=== PATIENT | male | born 1975 | race Caucasian/White ===

== ENCOUNTER 2018-01-03 09:31 | Inpatient (IN) | payer OTHER ==
[2018-01-03 10:08] VITALS: BMI 21.7
--- NOTE | 2018-01-03 11:19 | HP ---
COWS - Scale Resting Pulse: 0= [place] 80 or Below Sweatin=Flushed/Facial Moisture Restless Observation: 1= Difficult to Sit Still Pupil Size: 0= Normal to Room Light Bone or Joint Aches: 2= Severe Diffuse Aches Runny Nose/ Eye Tearin= Runny Nose/Eyes GI Upset > 30mins: 1= Stomach Cramp Tremor Observation: 2= Slight Tremor Visible Yawning Observation: 2= >3x During Session Anxiety or Irritability: 2=Irritable/Anxious Goose Flesh Skin: 3=Piloerection COWS Score: 17 Admission ROS S - HPI Chief Complaint: I am here to detox. Allergies/Adverse Reactions: Allergies Allergy/AdvReac Type Severity Reaction Status Date / Time No Known Allergies Allergy Verified 01/03/18 11:08 History of Present Illness: Pt is a 42yr old male with a history of heroin and cocaine dependence seeking detox for treatment. Exam Limitations: No Limitations - Ebola screening Have you traveled outside of the country in the last 21 days: No Have you had contact with anyone from an Ebola affected area: No Have you been sick,other than usual withdrawal symptoms: No Do you have a fever: No - Review of Systems Constitutional: Chills, Diaphoresis, Loss of Appetite, Night Sweats, Changes in sleep, Unintentional Wgt. Loss EENT: reports: Tearing, Nose Congestion Respiratory: reports: No Symptoms reported Cardiac: reports: No Symptoms Reported GI: reports: Poor Appetite, Poor Fluid Intake, Abdominal cramping : reports: No Symptoms Reported Musculoskeletal: reports: No Symptoms Reported Integumentary: reports: Flushing, Sweating Neuro: reports: Tingling, Tremors Endocrine: reports: Excessive Sweating, Flushing, Intolerance to Cold, Intolerance to Heat Hematology: reports: No Symptoms Reported Psychiatric: reports: Judgement Intact, Mood/Affect Appropiate, Orientated x3, Agitated, Anxious Other Systems: Reviewed and Negative Patient History - Patient Medical History Hx Anemia: No Hx Asthma: No Hx Chronic Obstructive Pulmonary Disease (COPD): No Hx Cancer: No Hx Cardiac Disorders: No Hx Congestive Heart Failure: No Hx Hypertension: No Hx Hypercholesterolemia: No Hx Pacemaker: No HX Cerebrovascular Accident: No Hx Seizures: No Hx Dementia: No Hx Diabetes: No Hx Gastrointestinal Disorders: No Hx Liver Disease: No Hx Genitourinary Disorders: No Hx Sexually Transmitted Disorders: No Hx Renal Disease (ESRD): No Hx Thyroid Disease: No Hx Human Immunodeficiency Virus (HIV): No (negative) Hx Hepatitis C: No (negative) Hx Depression: No Hx Suicide Attempt: No (denies) Hx Bipolar Disorder: No Hx Schizophrenia: No - Patient Surgical History Past Surgical History: Yes Hx Neurologic Surgery: No Hx Cataract Extraction: No Hx Cardiac Surgery: No Hx Lung Surgery: No Hx Breast Surgery: No Hx Breast Biopsy: No Hx Abdominal Surgery: No Hx Appendectomy: No Hx Cholecystectomy: No Hx Genitourinary Surgery: No Hx Section: No Other Surgical History: R INGUINAL HERNIA REPAIR IN 2006 Anesthesia Reaction: No - PPD History Previous Implant?: Yes Documented Results: Negative w/o proof Implanted On Prior [facility] Admission?: Yes PPD to be Administered?: Yes - Reproductive History Patient is a Female of Child Bearing Age (11 -55 yrs old): No - Smoking Cessation Smoking history: Current every day smoker Have you smoked in the past 12 months: Yes Aproximately how many cigarettes per day: 20 Hx Chewing Tobacco Use: No Initiated information on smoking cessation: Yes 'Breaking Loose' booklet given: 01/03/18 - Substance & Tx. History Hx Alcohol Use: No Hx Substance Use: Yes Substance Use Type: Cocaine, Heroin Hx Substance Use Treatment: Yes (last detox a year ago [facility] ) - Substances Abused Heroin Route: Injection Frequency: Daily Amount used: 15-20 bags Age of first use: 20 Date of Last Use: 01/02/18 Family Disease History - Family Disease History Family History: Denies Admission Physical Exam S - Vital Signs Vital Signs: Vital Signs - 24 hr 01/03/18 10:02 Temperature 97.7 F Pulse Rate 73 Respiratory 18 Rate Blood Pressure 118/73 - Physical General Appearance: Yes: Appropriately Dressed, Moderate Distress, Tremorous, Irritable, Sweating, Anxious HEENTM: Yes: Normocephalic, Normal Voice, Nasal Congestion, Rhinorrhea Respiratory: Yes: Lungs Clear, Normal Breath Sounds, No Respiratory Distress Neck: Yes: No masses,lesions,Nodules Breast: Yes: Within Normal Limits, Axillae without masses, No masses Cardiology: Yes: Regular Rhythm, Regular Rate, S1, S2 Abdominal: Yes: Normal Bowel Sounds, Non Tender, Soft Genitourinary: Yes: Within Normal Limits Back: Yes: Normal Inspection Musculoskeletal: Yes: full range of Motion Extremities: Yes: Normal Capillary Refill, Normal Inspection, Non-Tender, Tremors Neurological: Yes: Fully Oriented, Alert, Normal Response Integumentary: Yes: Normal Color, Diaphoresis, Track Tanner Lymphatic: Yes: Within Normal Limits - Diagnostic (1) Opioid dependence, uncomplicated Current Visit: Yes Status: Chronic (2) Cocaine dependence Current Visit: Yes Status: Chronic Qualifiers: Substance use status: uncomplicated Qualified Code(s): F14.20 - Cocaine dependence, uncomplicated (3) Nicotine dependence Current Visit: Yes Status: Chronic Qualifiers: Nicotine product type: cigarettes Substance use status: uncomplicated Qualified Code(s): F17.210 - Nicotine dependence, cigarettes, uncomplicated Cleared for Admission [facility] - Detox or Rehab [facility] Level of Care: Medically Managed Detox Regimen/Protocol: Methadone [facility] Breath Alcohol Content Breath Alcohol Content: 0 Urine Drug Screen - Results Urine Drug Screen Results: ASIM-Cocaine, OPI-Opiates, OXY-Oxycodone
[2018-01-03] MEDS ORDERED: MAG HYDROX/AL HYDROX/SIMETH 30 ML UNIT-DOSE CUP PO PRN (11:23)
[2018-01-03] MEDS ORDERED: MAGNESIUM CITRATE 300 ML BOTTLE PO PRN (11:23)
[2018-01-03] MEDS ORDERED: ACETAMINOPHEN 325 MG TABLET (FP) PO PRN (11:23)
[2018-01-03] MEDS ORDERED: IBUPROFEN 400 MG TABLET (FP) PO PRN (11:23)
[2018-01-03] MEDS ORDERED: P-EPHED 60MG/TRIPROLIDI 2.5MG TABLET PO PRN (11:23)
[2018-01-03] MEDS ORDERED: MENTHOL/PHENOL 1 EACH UD MM PRN (11:23)
[2018-01-03] MEDS ORDERED: guaiFENesin/D-METHORPHAN HB 10 ML UNIT-DOSE CUPS PO PRN (11:23)
[2018-01-03] MEDS ORDERED: LOPERAMIDE HCL 2 MG CAPSULE PO PRN (11:23)
[2018-01-03] MEDS ORDERED: MAGNESIUM HYDROX 2400MG/30ML ORAL SUSPENSION 30 ML CUP PO PRN (11:23)
[2018-01-03] MEDS ORDERED: METHADONE HCL 10 MG TABLET (FOR DETOX USE ONLY) PO ONE ×2 (11:52→23:00)
[2018-01-03] MEDS: diazePAM 5 MG TABLET PO PRN ×2 (12:32→18:33)
[2018-01-03] MEDS: NICOTINE POLACRILEX 4 MG GUM BUC PRN ×3 (12:32→22:06)
[2018-01-03 17:12] LABS: URINE APPEARANCE CLEAR; URINE BILIRUBIN NEGATIVE (NEGATIVE); URINE BLOOD NEGATIVE (NEGATIVE); URINE COLOR YELLOW; URINE GLUCOSE (UA) NEGATIVE (NEGATIVE); URINE KETONE NEGATIVE (NEGATIVE); URINE LEUK ESTERASE NEGATIVE (NEGATIVE); URINE NITRITE NEGATIVE (NEGATIVE); URINE PROTEIN NEGATIVE (NEGATIVE)
[2018-01-03] MEDS: THIAMINE HCL 100 MG TABLET (FP) PO SCH (22:05)
[2018-01-04] MEDS: NICOTINE POLACRILEX 4 MG GUM BUC PRN ×2 (05:41→18:04)
[2018-01-04] MEDS: diazePAM 5 MG TABLET PO PRN ×5 (05:41→23:29)
[2018-01-04 09:59] LABS: HEMATOCRIT 39.6 % (35.4-49); HEMOGLOBIN 12.9 GM/dL (11.7-16.9); MCH 28.2 pg (25.7-33.7); MCHC 32.5 g/dl (32.0-35.9); MEAN CELL VOLUME 86.9 fl (80-96); MEAN PLT VOLUME 10.4 fl (7.5-11.1); PLATELET COUNT 217 K/MM3 (134-434); RBC 4.56 M/mm3 (4.00-5.60); RDW 14.9 % (11.9-15.9); WHITE BLOOD COUNT 6.6 K/mm3 (4.0-10.0)
[2018-01-04] MEDS ORDERED: METHADONE HCL 10 MG TABLET (FOR DETOX USE ONLY) PO ONE (10:00)
[2018-01-04] MEDS: PRENATAL VITAMINS W/ FOLIC ACID TABLET (FP) PO SCH (10:02)
[2018-01-04] MEDS: NICOTINE 21 MG/24 HOURS TOPICAL PATCH TD SCH (10:02)
[2018-01-04 10:30] LABS: CHLORIDE 102 mmol/L (98-107); POTASSIUM 4.7 mmol/L (3.5-5.1); SODIUM 137 mmol/L (136-145)
[2018-01-04 10:41] LABS: ALK PHOS 79 U/L (45-117); ANION GAP 6 (8-16); BILIRUBIN,TOTAL 0.5 mg/dL (0.2-1.0); BLOOD UREA NITROGEN 20 mg/dL (7-18); CALCIUM 9.4 mg/dL (8.5-10.1); CO2 29 mmol/L (21-32); GLUCOSE,RANDOM 108 mg/dL (74-106); SGOT/AST 26 U/L (15-37); SGPT/ALT 53 U/L (12-78)
[2018-01-04] MEDS ORDERED: diphenhydrAMINE HCL 50 MG CAPSULE PO PRN (11:24)
--- NOTE | 2018-01-04 11:32 | PN ---
BHS COWS - Scale Resting Pulse: 1= [place] 81-100 Sweatin= Chills/Flushing Restless Observation: 1= Difficult to Sit Still Pupil Size: 0= Normal to Room Light Bone or Joint Aches: 1= Mild Discomfort Runny Nose/ Eye Tearin= None GI Upset > 30mins: 2= Nausea/Diarrhea Tremor Observation of Outstretched Hands: 2= Slight Tremor Visible Yawning Observation: 1= 1-2x During Session Anxiety or Irritability: 4=Extreme Anxiety Goose Flesh Skin: 3=Piloerection COWS Score: 16 BHS Progress Note (SOAP) Subjective: Interrupted Sleep, Anxious, Nausea, Tremors, Body Aches. Objective: PT. A & O X 3,. NO ACUTE DISTRESS. 01/04/18 11:30 Vital Signs Temperature 97.0 F L 01/04/18 09:53 Pulse Rate 86 01/04/18 09:53 Respiratory Rate 18 01/04/18 09:53 Blood Pressure 119/79 01/04/18 09:53 O2 Sat by Pulse Oximetry (%) Laboratory Tests 01/03/18 01/04/18 01/04/18 15:00 05:45 05:45 WBC 6.6 RBC 4.56 Hgb 12.9 Hct 39.6 MCV 86.9 MCH 28.2 MCHC 32.5 RDW 14.9 Plt Count 217 MPV 10.4 Sodium 137 Potassium 4.7 Chloride 102 Carbon Dioxide 29 Anion Gap 6 L BUN 20 H Creatinine 1.0 Creat Clearance w eGFR > 60 Random Glucose 108 H Calcium 9.4 Total Bilirubin 0.5 D AST 26 ALT 53 Alkaline Phosphatase 79 D Total Protein 8.0 Albumin 4.0 Urine Color Yellow Urine Appearance Clear Urine pH 6.0 Ur Specific [place] 1.028 Urine Protein Negative Urine Glucose (UA) Negative Urine Ketones Negative Urine Blood Negative Urine Nitrite Negative Urine Bilirubin Negative Urine Urobilinogen 2.0 Ur Leukocyte Esterase Negative LABS NOTED. RPR RESULT PENDING. 01/04/18 11:31 Assessment: 01/04/18 11:31 WITHDRAWAL SYMPTOMS. Plan: CONTINUE DETOX. INCREASE DAILY PO FLUID INTAKE.
--- NOTE | 2018-01-04 14:01 | EKG ---
Test Reason : Blood Pressure : / mmHG Vent. Rate : 073 BPM Atrial Rate : 073 BPM P-R Int : 156 ms QRS Dur : 102 ms QT Int : 386 ms P-R-T Axes : 058 076 061 degrees QTc Int : 425 ms NORMAL SINUS RHYTHM WITH SINUS ARRHYTHMIA INCOMPLETE RIGHT BUNDLE BRANCH BLOCK BORDERLINE ECG NO PREVIOUS ECGS AVAILABLE Confirmed by MD Hernandez Edward ([id number]) on 01/04/2018 2:01:10 PM Referred By: Confirmed By:Kev Hernandez MD
[2018-01-04] MEDS: CYCLOBENZAPRINE HCL 10 MG TABLET (FP) PO PRN ×2 (14:44→22:26)
[2018-01-04] MEDS: THIAMINE HCL 100 MG TABLET (FP) PO SCH (22:26)
[2018-01-05] MEDS: diazePAM 5 MG TABLET PO PRN ×4 (06:50→22:16)
[2018-01-05] MEDS: CYCLOBENZAPRINE HCL 10 MG TABLET (FP) PO PRN ×3 (06:51→22:17)
[2018-01-05] MEDS: NICOTINE POLACRILEX 4 MG GUM BUC PRN ×4 (06:52→20:34)
[2018-01-05] MEDS ORDERED: METHADONE HCL 5 MG TABLET (FOR DETOX USE ONLY) PO ONE (10:00)
[2018-01-05] MEDS: PRENATAL VITAMINS W/ FOLIC ACID TABLET (FP) PO SCH (10:04)
[2018-01-05] MEDS: NICOTINE 21 MG/24 HOURS TOPICAL PATCH TD SCH (10:05)
--- NOTE | 2018-01-05 10:26 | CONSULT ---
[facility] Psychiatric Consult - Data Date of interview: 01/05/18 Admission source: [facility] Identifying data: Readmission to [facility] for this 42 y/o male seeking detox treatment on for heroin and cocaine dependence.Patient is single without children,domiciled and currently employed. Substance Abuse History: Confirmed by patient in this interview.Mr Desir admits to daily use of heroin and cocaine (crack). Details in current [facility] report.Smoking history: Current every day smoker. Have you smoked in the past 12 months: Yes. Aproximately how many cigarettes per day: 20. Hx Chewing Tobacco Use: No. Initiated information on smoking cessation: Yes. 'Breaking Loose' booklet given: 01/03/18. - Substance & Tx. History. Hx Alcohol Use: No. Hx Substance Use: Yes. Substance Use Type: Cocaine, Heroin. Hx Substance Use Treatment: Yes (last detox a year ago [facility] ). - Substances Abused. Heroin. Route: Injection. Frequency: Daily. Amount used: 15-20 bags. Age of first use: 20. Date of Last Use: 01/02/18 Medical History: Patient endorses good general health.Past history of right inguinal herniorraphy. Psychiatric History: Patient denies. Physical/Sexual Abuse/Trauma History: Patient denies. Additional Comment: Urine Drug Screen Results: ASIM-Cocaine, OPI-Opiates, OXY- Oxycodone.Noted. Mental Status Exam - Mental Status Exam Alert and Oriented to: Time, Place, Person Cognitive Function: Good Patient Appearance: Well Groomed Mood: Withdrawn, Hopeful Affect: Appropriate, Mood Congruent, Normal Range Patient Behavior: Fatigued, Appropriate, Cooperative Speech Pattern: Clear, Appropriate Voice Loudness: Normal Thought Process: Intact, Goal Oriented Thought Disorder: Not Present Hallucinations: Denies Suicidal Ideation: Denies Homicidal Ideation: Denies Insight/Judgement: Poor Sleep: Poorly, Difficulty falling asleep (requests seroquel) Appetite: Good Muscle strength/Tone: Normal Gait/Station: Normal Psychiatric Findings - Problem List ([place] 1, 2,3) (1) Opioid dependence, uncomplicated Current Visit: Yes Status: Acute (2) Cocaine dependence Current Visit: Yes Status: Acute Qualifiers: Substance use status: uncomplicated Qualified Code(s): F14.20 - Cocaine dependence, uncomplicated (3) Nicotine dependence Current Visit: Yes Status: Acute Qualifiers: Nicotine product type: cigarettes Substance use status: uncomplicated Qualified Code(s): F17.210 - Nicotine dependence, cigarettes, uncomplicated (4) Insomnia Current Visit: Yes Status: Acute - Initial Treatment Plan Initial Treatment Plan: Psychoeducation.Sleep hygiene.Detoxification in progress.Seroquel 50 mg po hs (patient's request).Side effects/benefits discussed with the patient.Mr Desir agrees with this careplan.Observation.
--- NOTE | 2018-01-05 10:53 | PN ---
BHS COWS - Scale Resting Pulse: 1= [place] 81-100 Sweatin= Chills/Flushing Restless Observation: 1= Difficult to Sit Still Pupil Size: 0= Normal to Room Light Bone or Joint Aches: 2= Severe Diffuse Aches Runny Nose/ Eye Tearin= None GI Upset > 30mins: 1= Stomach Cramp Tremor Observation of Outstretched Hands: 0= None Yawning Observation: 2= >3x During Session Anxiety or Irritability: 2=Irritable/Anxious Goose Flesh Skin: 3=Piloerection COWS Score: 13 BHS Progress Note (SOAP) Subjective: Body Aches, Constipation, Anxious, Sweating. Objective: PT. A & O X 3, OBSERVED AMBULATING ON UNIT. NO ACUTE DISTRESS. 01/05/18 10:50 Vital Signs Temperature 98.1 F 01/05/18 09:47 Pulse Rate 82 01/05/18 09:47 Respiratory Rate 18 01/05/18 09:47 Blood Pressure 114/79 01/05/18 09:47 O2 Sat by Pulse Oximetry (%) Laboratory Tests 01/03/18 01/04/18 01/04/18 15:00 05:45 05:45 WBC 6.6 RBC 4.56 Hgb 12.9 Hct 39.6 MCV 86.9 MCH 28.2 MCHC 32.5 RDW 14.9 Plt Count 217 MPV 10.4 Sodium 137 Potassium 4.7 Chloride 102 Carbon Dioxide 29 Anion Gap 6 L BUN 20 H Creatinine 1.0 Creat Clearance w eGFR > 60 Random Glucose 108 H Calcium 9.4 Total Bilirubin 0.5 D AST 26 ALT 53 Alkaline Phosphatase 79 D Total Protein 8.0 Albumin 4.0 Urine Color Yellow Urine Appearance Clear Urine pH 6.0 Ur Specific [place] 1.028 Urine Protein Negative Urine Glucose (UA) Negative Urine Ketones Negative Urine Blood Negative Urine Nitrite Negative Urine Bilirubin Negative Urine Urobilinogen 2.0 Ur Leukocyte Esterase Negative RPR Titer 01/04/18 05:45 WBC RBC Hgb Hct MCV MCH MCHC RDW Plt Count MPV Sodium Potassium Chloride Carbon Dioxide Anion Gap BUN Creatinine Creat Clearance w eGFR Random Glucose Calcium Total Bilirubin AST ALT Alkaline Phosphatase Total Protein Albumin Urine Color Urine Appearance Urine pH Ur Specific [place] Urine Protein Urine Glucose (UA) Urine Ketones Urine Blood Urine Nitrite Urine Bilirubin Urine Urobilinogen Ur Leukocyte Esterase RPR Titer Nonreactive LABS NOTED. Assessment: 01/05/18 10:51 WITHDRAWAL SYMPTOMS. Plan: CONTINUE DETOX. PRN MOM FOR CONSTIPATION. INCREASE DAILY PO FLUID INTAKE.
[2018-01-05] MEDS: hydrOXYzine PAMOATE 50 MG CAPSULE (FP) PO PRN ×2 (16:42→22:17)
[2018-01-05] MEDS: THIAMINE HCL 100 MG TABLET (FP) PO SCH (22:17)
[2018-01-06] MEDS: diazePAM 5 MG TABLET PO PRN ×2 (05:14→10:01)
[2018-01-06] MEDS: NICOTINE POLACRILEX 4 MG GUM BUC PRN ×6 (05:14→22:22)
[2018-01-06] MEDS: CYCLOBENZAPRINE HCL 10 MG TABLET (FP) PO PRN ×2 (05:14→22:22)
[2018-01-06] MEDS: hydrOXYzine PAMOATE 50 MG CAPSULE (FP) PO PRN ×3 (05:15→22:50)
[2018-01-06] MEDS ORDERED: METHADONE HCL 5 MG TABLET (FOR DETOX USE ONLY) PO ONE (10:00)
[2018-01-06] MEDS: PRENATAL VITAMINS W/ FOLIC ACID TABLET (FP) PO SCH (10:01)
[2018-01-06] MEDS: NICOTINE 21 MG/24 HOURS TOPICAL PATCH TD SCH (10:02)
--- NOTE | 2018-01-06 11:14 | PN ---
BHS Progress Note (SOAP) Subjective: Anxious, Sweating, Stomach Cramping, Body Aches, Interrupted Sleep. Objective: PT. A & O X 3, OBSERVED AMBULATING ON UNIT. NO ACUTE DISTRESS. 01/06/18 11:10 Vital Signs Temperature 96.2 F L 01/06/18 09:41 Pulse Rate 77 01/06/18 09:41 Respiratory Rate 18 01/06/18 09:41 Blood Pressure 110/81 01/06/18 09:41 O2 Sat by Pulse Oximetry (%) Laboratory Tests 01/03/18 01/04/18 01/04/18 15:00 05:45 05:45 WBC 6.6 RBC 4.56 Hgb 12.9 Hct 39.6 MCV 86.9 MCH 28.2 MCHC 32.5 RDW 14.9 Plt Count 217 MPV 10.4 Sodium 137 Potassium 4.7 Chloride 102 Carbon Dioxide 29 Anion Gap 6 L BUN 20 H Creatinine 1.0 Creat Clearance w eGFR > 60 Random Glucose 108 H Calcium 9.4 Total Bilirubin 0.5 D AST 26 ALT 53 Alkaline Phosphatase 79 D Total Protein 8.0 Albumin 4.0 Urine Color Yellow Urine Appearance Clear Urine pH 6.0 Ur Specific [place] 1.028 Urine Protein Negative Urine Glucose (UA) Negative Urine Ketones Negative Urine Blood Negative Urine Nitrite Negative Urine Bilirubin Negative Urine Urobilinogen 2.0 Ur Leukocyte Esterase Negative RPR Titer 01/04/18 05:45 WBC RBC Hgb Hct MCV MCH MCHC RDW Plt Count MPV Sodium Potassium Chloride Carbon Dioxide Anion Gap BUN Creatinine Creat Clearance w eGFR Random Glucose Calcium Total Bilirubin AST ALT Alkaline Phosphatase Total Protein Albumin Urine Color Urine Appearance Urine pH Ur Specific [place] Urine Protein Urine Glucose (UA) Urine Ketones Urine Blood Urine Nitrite Urine Bilirubin Urine Urobilinogen Ur Leukocyte Esterase RPR Titer Nonreactive LABS NOTED. Assessment: 01/06/18 11:10 WITHDRAWAL SYMPTOMS. Plan: CONTINUE DETOX. CLONIDINE, 0.,1 MG PO FOR DETOX SYMPTOMS (PATIENT REQUESTS). INCREASE DAILY PO FLUID INTAKE.
[2018-01-06] MEDS ORDERED: cloNIDine HCL 0.1 MG TABLET PO ONE (11:30)
[2018-01-06] MEDS ORDERED: QUEtiapine FUMARATE 50 MG TABLET PO SCH (22:00)
[2018-01-06] MEDS: THIAMINE HCL 100 MG TABLET (FP) PO SCH (22:22)
[2018-01-07] MEDS: NICOTINE POLACRILEX 4 MG GUM BUC PRN ×2 (05:30→08:29)
[2018-01-07] MEDS: CYCLOBENZAPRINE HCL 10 MG TABLET (FP) PO PRN (05:30)
[2018-01-07] MEDS: hydrOXYzine PAMOATE 50 MG CAPSULE (FP) PO PRN (05:30)
[2018-01-07] MEDS: NICOTINE 21 MG/24 HOURS TOPICAL PATCH TD SCH (09:35)
[2018-01-07] MEDS: PRENATAL VITAMINS W/ FOLIC ACID TABLET (FP) PO SCH (09:35)
[2018-01-07 09:38] VITALS: BP 118/79; PULSE 84; TEMP 96.6
[2018-01-07] MEDS ORDERED: METHADONE HCL 10 MG TABLET (FOR DETOX USE ONLY) PO ONE (10:00)
--- NOTE | 2018-01-07 11:18 | DS ---
[facility] Detox Discharge Summary Admission Date: 01/03/18 Discharge Date: 01/07/18 - History Present History: Cocaine Dependence, Opioid Dependence Additional Comments: PATIENT HAS PERSONAL ISSUE TO AND DOES NOT WISH TO STAY TO COMPLETE DETOX REGIMEN. RISKS OF LEAVING DETOX REGIMEN AGAINST MEDICAL ADVICE AND PRIOR TO COMPLETION OF DETOX REGIMEN EXPLAINED TO PATIENT. PATIENT ADVISED TO GO IMMEDIATELY TO NEAREST ER SHOULD ANY INTOLERABLE DETOX SYMPTOMS DEVELOP AT ANY TIME. PATIENT LEFT DETOX UNIT IN STABLE MEDICAL CONDITION. Pertinent Past History: Nicotine Dependence, Insomnia. - Physical Exam Results Vital Signs: Vital Signs Temperature 96.6 F L 01/07/18 09:37 Pulse Rate 84 01/07/18 09:37 Respiratory Rate 16 01/07/18 09:37 Blood Pressure 118/79 01/07/18 09:37 O2 Sat by Pulse Oximetry (%) Pertinent Admission Physical Exam Findings: WITHDRAWAL SYMPTOMS. Laboratory Tests 01/03/18 01/04/18 01/04/18 15:00 05:45 05:45 WBC 6.6 RBC 4.56 Hgb 12.9 Hct 39.6 MCV 86.9 MCH 28.2 MCHC 32.5 RDW 14.9 Plt Count 217 MPV 10.4 Sodium 137 Potassium 4.7 Chloride 102 Carbon Dioxide 29 Anion Gap 6 L BUN 20 H Creatinine 1.0 Creat Clearance w eGFR > 60 Random Glucose 108 H Calcium 9.4 Total Bilirubin 0.5 D AST 26 ALT 53 Alkaline Phosphatase 79 D Total Protein 8.0 Albumin 4.0 Urine Color Yellow Urine Appearance Clear Urine pH 6.0 Ur Specific [place] 1.028 Urine Protein Negative Urine Glucose (UA) Negative Urine Ketones Negative Urine Blood Negative Urine Nitrite Negative Urine Bilirubin Negative Urine Urobilinogen 2.0 Ur Leukocyte Esterase Negative RPR Titer 01/04/18 05:45 WBC RBC Hgb Hct MCV MCH MCHC RDW Plt Count MPV Sodium Potassium Chloride Carbon Dioxide Anion Gap BUN Creatinine Creat Clearance w eGFR Random Glucose Calcium Total Bilirubin AST ALT Alkaline Phosphatase Total Protein Albumin Urine Color Urine Appearance Urine pH Ur Specific [place] Urine Protein Urine Glucose (UA) Urine Ketones Urine Blood Urine Nitrite Urine Bilirubin Urine Urobilinogen Ur Leukocyte Esterase RPR Titer Nonreactive LABS NOTED. - Treatment Hospital Course: Detoxed Safely - Medication Discharge Medications: Ambulatory Orders NK [No Known Home Medication] 01/03/18 - Diagnosis (1) Cocaine dependence Status: Acute Qualifiers: Substance use status: uncomplicated Qualified Code(s): F14.20 - Cocaine dependence, uncomplicated (2) Nicotine dependence Status: Acute Qualifiers: Nicotine product type: cigarettes Substance use status: uncomplicated Qualified Code(s): F17.210 - Nicotine dependence, cigarettes, uncomplicated (3) Opioid dependence, uncomplicated Status: Acute (4) Insomnia Status: Acute Qualifiers: Insomnia type: unspecified Qualified Code(s): G47.00 - Insomnia, unspecified - AMA Did Patient Leave Against Medical Advice: Yes (PT HAD PERSONAL ISSUE AND DOES NOT WISH TO STAY TO COMPLETE DETOX REGIMEN.)
[2018-01-08] MEDS ORDERED: METHADONE HCL 5 MG TABLET (FOR DETOX USE ONLY) PO ONE (06:00)
== END 2018-01-07 10:34 | disposition left against medical advice (07) | DRG 894 ==
LOC: YASAS 09:31 → Y3N 11:38
PROVIDERS: ADMIT Internal Medicine; ATTEND Internal Medicine
PROC: HZ2ZZZZ Detoxification Services for Substance Abuse Treatment (ICD-10-PCS; principal; 2018-01-03)
DX: F11.23 Opioid dependence with withdrawal (principal); F14.20 Cocaine dependence, uncomplicated; F17.210 Nicotine dependence, cigarettes, uncomplicated; G47.00 Insomnia, unspecified
CPT/HCPCS: 36415; 80053; 81003; 85027; 86593; 93005; 93010; J0735

== ENCOUNTER 2018-09-26 12:27 | Inpatient (IN) | payer OTHER ==
[2018-09-26 15:05] VITALS: BMI 22.9
--- NOTE | 2018-09-26 16:43 | HP ---
COWS - Scale Resting Pulse: 0= [place] 80 or Below Sweatin=Flushed/Facial Moisture Restless Observation: 1= Difficult to Sit Still Pupil Size: 0= Normal to Room Light Bone or Joint Aches: 1= Mild Discomfort Runny Nose/ Eye Tearin= Nasal Congestion GI Upset > 30mins: 2= Nausea/Diarrhea Tremor Observation: 2= Slight Tremor Visible Yawning Observation: 1= 1-2x During Session Anxiety or Irritability: 2=Irritable/Anxious Goose Flesh Skin: 0=Smooth Skin COWS Score: [address] [facility] Chief Complaint: opioid withdrawal symptoms Allergies/Adverse Reactions: Allergies Allergy/AdvReac Type Severity Reaction Status Date / Time No Known Allergies Allergy Verified 09/26/18 15:37 History of Present Illness: 43 yo male with hx of nicotine, heroin (IV), crack / cocaine dependence is here seeking detox and tx of withdrawal symptoms. Last detox [facility] Dec 2017. Denies suicidal / homicidal ideation. Reports was arrested a few days ago for drug possession. Longest period of sobriety five years. Reports on suboxone maintenance four years ago. Exam Limitations: No Limitations - Ebola screening Have you traveled outside of the country in the last 21 days: No Have you had contact with anyone from an Ebola affected area: No Have you been sick,other than usual withdrawal symptoms: No - Review of Systems Constitutional: Chills, Loss of Appetite, Changes in sleep, Weakness, Unintentional Wgt. Loss (40 lbs in the past "couple of year") EENT: reports: Nose Congestion Respiratory: reports: No Symptoms reported Cardiac: reports: No Symptoms Reported GI: reports: Constipated (last BM two days), Nausea, Poor Appetite, Abdominal cramping : reports: No Symptoms Reported Musculoskeletal: reports: Joint Pain Integumentary: reports: No Symptoms Reported Neuro: reports: No Symptoms reported Endocrine: reports: Increased Thirst Hematology: reports: No Symptoms Reported Psychiatric: reports: Orientated x3, Anxious Other Systems: Reviewed and Negative Patient History - Patient Medical History Hx Anemia: No Hx Asthma: No Hx Chronic Obstructive Pulmonary Disease (COPD): No Hx Cancer: No Hx Cardiac Disorders: No Hx Congestive Heart Failure: No Hx Hypertension: No Hx Hypercholesterolemia: No Hx Pacemaker: No HX Cerebrovascular Accident: No Hx Seizures: No Hx Dementia: No Hx Diabetes: No Hx Gastrointestinal Disorders: No Hx Liver Disease: No Hx Genitourinary Disorders: No Hx Sexually Transmitted Disorders: No Hx Renal Disease (ESRD): No Hx Thyroid Disease: No Hx Human Immunodeficiency Virus (HIV): No (negative) Hx Hepatitis C: No (negative) Hx Depression: No Hx Suicide Attempt: No Hx Bipolar Disorder: No Hx Schizophrenia: No - Patient Surgical History Past Surgical History: Yes Hx Neurologic Surgery: No Hx Cataract Extraction: No Hx Cardiac Surgery: No Hx Lung Surgery: No Hx Breast Surgery: No Hx Breast Biopsy: No Hx Abdominal Surgery: No Hx Appendectomy: No Hx Cholecystectomy: No Hx Genitourinary Surgery: No Hx Section: No Hx Orthopedic Surgery: Yes (R wrist sx for fx at age 14 yrs old.) Other Surgical History: R INGUINAL HERNIA REPAIR IN 2006 Anesthesia Reaction: No - PPD History Previous Implant?: Yes Documented Results: Negative w/proof Implanted On Prior [facility] Admission?: Yes Date: 01/05/18 Results: 0 mm PPD to be Administered?: Yes - Smoking Cessation Smoking history: Current every day smoker Have you smoked in the past 12 months: Yes Aproximately how many cigarettes per day: 20 Hx Chewing Tobacco Use: No Initiated information on smoking cessation: Yes 'Breaking Loose' booklet given: 09/26/18 - Substance & Tx. History Hx Alcohol Use: No Hx Substance Use: Yes Substance Use Type: Cocaine, Heroin Hx Substance Use Treatment: Yes ([facility] detox Dec 2017) - Substances Abused Heroin Route: Injection Frequency: Daily Amount used: 15-20 BAGS Age of first use: 20 Date of Last Use: 09/26/18 Cocaine Route: Smoking Frequency: Daily Amount used: $30 Age of first use: 17 Date of Last Use: 09/26/18 Family Disease History - Family Disease History Family Disease History: Diabetes: Father (alive ) Admission Physical Exam BHS - Vital Signs Vital Signs: Vital Signs - 24 hr 09/26/18 15:03 Temperature 97 F L Pulse Rate 74 Respiratory 18 Rate Blood Pressure 123/78 - Physical General Appearance: Yes: Disheveled, Mild Distress, Thin, Sweating, Anxious HEENTM: Yes: EOMI, Hearing grossly Normal, Normal ENT Inspection, Normocephalic , Normal Voice, SHELLY, Pharynx Normal, Tm's normal, Other (dry mucous membranes, cheilithis) Respiratory: Yes: Chest Non-Tender, Lungs Clear, Normal Breath Sounds, No Respiratory Distress, No Accessory Muscle Use Neck: Yes: Within Normal Limits Breast: Yes: Breast Exam Deferred Cardiology: Yes: Regular Rhythm, Regular Rate Abdominal: Yes: Normal Bowel Sounds, Non Tender, Flat, Soft Genitourinary: Yes: Within Normal Limits Back: Yes: Normal Inspection Musculoskeletal: Yes: full range of Motion, Gait Steady, Pelvis Stable Extremities: Yes: Normal Capillary Refill, Normal Inspection, Normal Range of Motion, Non-Tender Neurological: Yes: solar mechanical engineer II-XII NML intact, Fully Oriented, Alert, Motor Strength 5/5, Depressed Affect Integumentary: Yes: Normal Color, Warm, Diaphoresis, Track Tanner (both hands no infection present) Lymphatic: Yes: Within Normal Limits - Diagnostic (1) Opioid dependence with withdrawal Current Visit: Yes Status: Acute (2) Cocaine dependence Current Visit: Yes Status: Acute Qualifiers: Substance use status: uncomplicated Qualified Code(s): F14.20 - Cocaine dependence, uncomplicated (3) Nicotine dependence Current Visit: Yes Status: Acute Qualifiers: Nicotine product type: cigarettes Substance use status: uncomplicated Qualified Code(s): F17.210 - Nicotine dependence, cigarettes, uncomplicated (4) IVDU (intravenous drug user) Current Visit: Yes Status: Acute [facility] Level of Care: Medically Managed Detox Regimen/Protocol: Methadone [facility] Breath Alcohol Content Breath Alcohol Content: 0 Urine Drug Screen - Results Drug Screen Negative: No Urine Drug Screen Results: ASIM-Cocaine, OPI-Opiates, BAR-Barbiturates, OXY- Oxycodone
[2018-09-26] MEDS ORDERED: MENTHOL/PHENOL 1 EACH UD MM PRN (16:45)
[2018-09-26] MEDS ORDERED: guaiFENesin/D-METHORPHAN HB 10 ML UNIT-DOSE CUPS PO PRN (16:45)
[2018-09-26] MEDS ORDERED: IBUPROFEN 400 MG TABLET (FP) PO PRN (16:45)
[2018-09-26] MEDS ORDERED: P-EPHED 60MG/TRIPROLIDI 2.5MG TABLET PO PRN (16:45)
[2018-09-26] MEDS ORDERED: MAGNESIUM CITRATE 300 ML BOTTLE PO PRN (16:45)
[2018-09-26] MEDS ORDERED: MAGNESIUM HYDROX 2400MG/30ML ORAL SUSPENSION 30 ML CUP PO PRN (16:45)
[2018-09-26] MEDS ORDERED: MAG HYDROX/AL HYDROX/SIMETH 30 ML UNIT-DOSE CUP PO PRN (16:45)
[2018-09-26] MEDS ORDERED: LOPERAMIDE HCL 2 MG CAPSULE PO PRN (16:45)
[2018-09-26] MEDS ORDERED: ACETAMINOPHEN 325 MG TABLET (FP) PO PRN (16:45)
[2018-09-26] MEDS ORDERED: METHADONE HCL 10 MG TABLET (FOR DETOX USE ONLY) PO ONE ×2 (17:30→23:00)
[2018-09-26] MEDS: diazePAM 5 MG TABLET PO PRN ×2 (18:14→22:20)
[2018-09-26] MEDS: THIAMINE HCL 100 MG TABLET (FP) PO SCH (22:18)
[2018-09-26] MEDS: MELATONIN 5 MG TABLETS PO PRN (22:18)
[2018-09-27 01:37] LABS: URINE APPEARANCE CLEAR; URINE BILIRUBIN NEGATIVE (<2.0 mg/dL); URINE COLOR AMBER; URINE GLUCOSE (UA) NEGATIVE (NEGATIVE); URINE KETONE NEGATIVE (NEGATIVE); URINE LEUK ESTERASE NEGATIVE (NEGATIVE); URINE NITRITE NEGATIVE (NEGATIVE); URINE PROTEIN 1+ (NEGATIVE); URINE UROBILINOGEN NEGATIVE mg/dL (0.2-1.0)
[2018-09-27 02:03] LABS: URINE MUCUS MANY
[2018-09-27] MEDS: NICOTINE POLACRILEX 2 MG GUM BC PRN ×4 (06:13→17:59)
[2018-09-27] MEDS: diazePAM 5 MG TABLET PO PRN ×5 (06:13→22:48)
[2018-09-27] MEDS: NICOTINE 21 MG/24 HOURS TOPICAL PATCH TD SCH (09:57)
[2018-09-27] MEDS: PRENATAL VITAMINS W/ FOLIC ACID TABLET (FP) PO SCH (09:57)
[2018-09-27] MEDS ORDERED: METHADONE HCL 10 MG TABLET (FOR DETOX USE ONLY) PO ONE (10:00)
[2018-09-27 11:30] LABS: HEMATOCRIT 40.2 % (35.4-49); HEMOGLOBIN 13.1 GM/dL (11.7-16.9); MCH 27.7 pg (25.7-33.7); MCHC 32.5 g/dl (32.0-35.9); MEAN CELL VOLUME 85.2 fl (80-96); MEAN PLT VOLUME 9.4 fl (7.5-11.1); PLATELET COUNT 271 K/MM3 (134-434); RBC 4.72 M/mm3 (4.00-5.60); RDW 14.4 % (11.9-15.9); WHITE BLOOD COUNT 9.2 K/mm3 (4.0-10.0)
[2018-09-27 11:56] LABS: ALBUMIN 3.5 g/dl (3.4-5.0); ALK PHOS 78 U/L (45-117); ANION GAP 8 MMOL/L (8-16); BILIRUBIN,TOTAL 0.3 mg/dL (0.2-1); BLOOD UREA NITROGEN 17 mg/dL (7-18); CALCIUM 9.1 mg/dL (8.5-10.1); CHLORIDE 103 mmol/L (98-107); CO2 27 mmol/L (21-32); CREATININE 1.1 mg/dL (0.55-1.3); GLUCOSE,RANDOM 93 mg/dL (74-106); POTASSIUM 4.5 mmol/L (3.5-5.1); SGOT/AST 17 U/L (15-37); SGPT/ALT 34 U/L (13-61); SODIUM 138 mmol/L (136-145); TOT PROT 7.5 g/dl (6.4-8.2)
--- NOTE | 2018-09-27 14:41 | PN ---
BHS COWS - Scale Resting Pulse: 0= [place] 80 or Below Sweatin= Chills/Flushing Restless Observation: 3= Extraneous Movement Pupil Size: 0= Normal to Room Light Bone or Joint Aches: 2= Severe Diffuse Aches Runny Nose/ Eye Tearin= Runny Nose/Eyes GI Upset > 30mins: 3= Vomiting/Diarrhea Tremor Observation of Outstretched Hands: 2= Slight Tremor Visible Yawning Observation: 1= 1-2x During Session Anxiety or Irritability: 2=Irritable/Anxious Goose Flesh Skin: 0=Smooth Skin COWS Score: 16 S Progress Note (SOAP) Subjective: Yawning, tremor, chills, sweating, interrupted sleep Objective: 09/27/18 14:37 Last Vital Signs Temp Pulse Resp BP Pulse Ox 97.8 F 80 16 114/73 09/27/18 13:55 09/27/18 13:55 09/27/18 13:55 09/27/18 13:55 Laboratory Tests 09/27/18 09/27/18 09/27/18 00:01 07:00 07:00 WBC 9.2 RBC 4.72 Hgb 13.1 Hct 40.2 MCV 85.2 MCH 27.7 MCHC 32.5 RDW 14.4 Plt Count 271 D MPV 9.4 Sodium 138 Potassium 4.5 Chloride 103 Carbon Dioxide 27 Anion Gap 8 BUN 17 Creatinine 1.1 Creat Clearance w eGFR > 60 Random Glucose 93 Calcium 9.1 Total Bilirubin 0.3 AST 17 ALT 34 Alkaline Phosphatase 78 Total Protein 7.5 Albumin 3.5 Urine Color Nely Urine Appearance Clear Urine pH 6.0 Ur Specific [place] 1.029 Urine Protein 1+ H Urine Glucose (UA) Negative Urine Ketones Negative Urine Blood Negative Urine Nitrite Negative Urine Bilirubin Negative Urine Urobilinogen Negative Ur Leukocyte Esterase Negative Urine WBC (Auto) 1 Urine RBC (Auto) 2 Urine Mucus Many RPR Titer 09/27/18 07:00 WBC RBC Hgb Hct MCV MCH MCHC RDW Plt Count MPV Sodium Potassium Chloride Carbon Dioxide Anion Gap BUN Creatinine Creat Clearance w eGFR Random Glucose Calcium Total Bilirubin AST ALT Alkaline Phosphatase Total Protein Albumin Urine Color Urine Appearance Urine pH Ur Specific [place] Urine Protein Urine Glucose (UA) Urine Ketones Urine Blood Urine Nitrite Urine Bilirubin Urine Urobilinogen Ur Leukocyte Esterase Urine WBC (Auto) Urine RBC (Auto) Urine Mucus RPR Titer Nonreactive Labs reviewed: abnormal UA Assessment: 09/27/18 14:39 Withdrawal symptoms Noted with abnormal UA Plan: Continue detox Abnormal UA: encouraged PO water intake, repeat UA
[2018-09-27] MEDS: THIAMINE HCL 100 MG TABLET (FP) PO SCH (22:48)
[2018-09-27] MEDS: MELATONIN 5 MG TABLETS PO PRN (22:49)
[2018-09-28] MEDS: diazePAM 5 MG TABLET PO PRN ×4 (04:55→19:13)
[2018-09-28] MEDS: NICOTINE POLACRILEX 2 MG GUM BC PRN ×5 (07:00→22:40)
[2018-09-28] MEDS: PRENATAL VITAMINS W/ FOLIC ACID TABLET (FP) PO SCH (09:53)
--- NOTE | 2018-09-28 09:53 | EKG ---
Test Reason : Blood Pressure : / mmHG Vent. Rate : 076 BPM Atrial Rate : 076 BPM P-R Int : 152 ms QRS Dur : 098 ms QT Int : 386 ms P-R-T Axes : 041 073 066 degrees QTc Int : 434 ms NORMAL SINUS RHYTHM NORMAL ECG WHEN COMPARED WITH ECG OF 03-JAN-2018 12:43, INCOMPLETE RIGHT BUNDLE BRANCH BLOCK IS NO LONGER PRESENT T WAVE AMPLITUDE HAS INCREASED IN ANTERIOR LEADS Confirmed by YAMILEX BACA, SIVAKUMAR ([id number]) on 09/28/2018 9:52:43 AM Referred By: Confirmed By:SIVAKUMAR KAMINSKI MD
[2018-09-28] MEDS: NICOTINE 21 MG/24 HOURS TOPICAL PATCH TD SCH (09:54)
[2018-09-28] MEDS ORDERED: METHADONE HCL 5 MG TABLET (FOR DETOX USE ONLY) PO ONE (10:00)
[2018-09-28] MEDS: cloNIDine HCL 0.1 MG TABLET PO PRN ×2 (11:31→22:16)
--- NOTE | 2018-09-28 15:26 | PN ---
BHS COWS - Scale Resting Pulse: 1= [place] 81-100 Sweatin= Chills/Flushing Restless Observation: 3= Extraneous Movement Pupil Size: 0= Normal to Room Light Bone or Joint Aches: 2= Severe Diffuse Aches Runny Nose/ Eye Tearin= Runny Nose/Eyes GI Upset > 30mins: 1= Stomach Cramp Tremor Observation of Outstretched Hands: 2= Slight Tremor Visible Yawning Observation: 0= None Anxiety or Irritability: 2=Irritable/Anxious Goose Flesh Skin: 0=Smooth Skin COWS Score: 14 BHS Progress Note (SOAP) Subjective: Sweating, poor appetite, interrupted sleep, tremor, chills. Patient requesting clonidine and vistaril prn stating that valium and methadone not working. Objective: 09/28/18 15:24 Last Vital Signs Temp Pulse Resp BP Pulse Ox 96.8 F L 84 18 119/80 09/28/18 13:51 09/28/18 13:51 09/28/18 13:51 09/28/18 13:51 Laboratory Tests 09/27/18 09/27/18 09/27/18 00:01 07:00 07:00 WBC 9.2 RBC 4.72 Hgb 13.1 Hct 40.2 MCV 85.2 MCH 27.7 MCHC 32.5 RDW 14.4 Plt Count 271 D MPV 9.4 Sodium 138 Potassium 4.5 Chloride 103 Carbon Dioxide 27 Anion Gap 8 BUN 17 Creatinine 1.1 Creat Clearance w eGFR > 60 Random Glucose 93 Calcium 9.1 Total Bilirubin 0.3 AST 17 ALT 34 Alkaline Phosphatase 78 Total Protein 7.5 Albumin 3.5 Urine Color Nely Urine Appearance Clear Urine pH 6.0 Ur Specific [place] 1.029 Urine Protein 1+ H Urine Glucose (UA) Negative Urine Ketones Negative Urine Blood Negative Urine Nitrite Negative Urine Bilirubin Negative Urine Urobilinogen Negative Ur Leukocyte Esterase Negative Urine WBC (Auto) 1 Urine RBC (Auto) 2 Urine Mucus Many RPR Titer 09/27/18 07:00 WBC RBC Hgb Hct MCV MCH MCHC RDW Plt Count MPV Sodium Potassium Chloride Carbon Dioxide Anion Gap BUN Creatinine Creat Clearance w eGFR Random Glucose Calcium Total Bilirubin AST ALT Alkaline Phosphatase Total Protein Albumin Urine Color Urine Appearance Urine pH Ur Specific [place] Urine Protein Urine Glucose (UA) Urine Ketones Urine Blood Urine Nitrite Urine Bilirubin Urine Urobilinogen Ur Leukocyte Esterase Urine WBC (Auto) Urine RBC (Auto) Urine Mucus RPR Titer Nonreactive Labs reviewed: abnormal UA (ordered for repeat but not yet done) Assessment: 09/28/18 15:25 Withdrawal symptoms Noted with abnormal UA Plan: Continue detox Abnormal UA: encouraged PO water intake, follow up on repeated UA
[2018-09-28] MEDS: hydrOXYzine PAMOATE 50 MG CAPSULE (FP) PO PRN (16:56)
[2018-09-28] MEDS: THIAMINE HCL 100 MG TABLET (FP) PO SCH (22:16)
[2018-09-28] MEDS: MELATONIN 5 MG TABLETS PO PRN (22:17)
[2018-09-29] MEDS: cloNIDine HCL 0.1 MG TABLET PO PRN ×2 (06:08→22:31)
[2018-09-29] MEDS: hydrOXYzine PAMOATE 50 MG CAPSULE (FP) PO PRN ×2 (06:08→17:39)
[2018-09-29] MEDS: NICOTINE POLACRILEX 2 MG GUM BC PRN ×5 (06:15→22:32)
[2018-09-29] MEDS: diazePAM 5 MG TABLET PO PRN ×2 (08:50→14:03)
[2018-09-29] MEDS: PRENATAL VITAMINS W/ FOLIC ACID TABLET (FP) PO SCH (09:36)
[2018-09-29] MEDS ORDERED: METHADONE HCL 5 MG TABLET (FOR DETOX USE ONLY) PO ONE (10:00)
[2018-09-29] MEDS: NICOTINE 21 MG/24 HOURS TOPICAL PATCH TD SCH (10:48)
[2018-09-29 14:45] LABS: URINE APPEARANCE CLOUDY; URINE BILIRUBIN NEGATIVE (<2.0 mg/dL); URINE COLOR YELLOW; URINE GLUCOSE (UA) NEGATIVE (NEGATIVE); URINE KETONE NEGATIVE (NEGATIVE); URINE LEUK ESTERASE NEGATIVE (NEGATIVE); URINE NITRITE NEGATIVE (NEGATIVE); URINE PROTEIN NEGATIVE (NEGATIVE); URINE UROBILINOGEN NEGATIVE mg/dL (0.2-1.0)
--- NOTE | 2018-09-29 15:29 | PN ---
BHS Progress Note (SOAP) Subjective: Tremor, chills, poor appetite Objective: 09/29/18 15:28 Last Vital Signs Temp Pulse Resp BP Pulse Ox 97.3 F L 80 18 102/59 L 09/29/18 13:47 09/29/18 13:47 09/29/18 13:47 09/29/18 13:47 Laboratory Tests 09/27/18 09/27/18 09/27/18 00:01 07:00 07:00 WBC 9.2 RBC 4.72 Hgb 13.1 Hct 40.2 MCV 85.2 MCH 27.7 MCHC 32.5 RDW 14.4 Plt Count 271 D MPV 9.4 Sodium 138 Potassium 4.5 Chloride 103 Carbon Dioxide 27 Anion Gap 8 BUN 17 Creatinine 1.1 Creat Clearance w eGFR > 60 Random Glucose 93 Calcium 9.1 Total Bilirubin 0.3 AST 17 ALT 34 Alkaline Phosphatase 78 Total Protein 7.5 Albumin 3.5 Urine Color Nely Urine Appearance Clear Urine pH 6.0 Ur Specific [place] 1.029 Urine Protein 1+ H Urine Glucose (UA) Negative Urine Ketones Negative Urine Blood Negative Urine Nitrite Negative Urine Bilirubin Negative Urine Urobilinogen Negative Ur Leukocyte Esterase Negative Urine WBC (Auto) 1 Urine RBC (Auto) 2 Urine Mucus Many RPR Titer 09/27/18 09/29/18 07:00 13:25 WBC RBC Hgb Hct MCV MCH MCHC RDW Plt Count MPV Sodium Potassium Chloride Carbon Dioxide Anion Gap BUN Creatinine Creat Clearance w eGFR Random Glucose Calcium Total Bilirubin AST ALT Alkaline Phosphatase Total Protein Albumin Urine Color Yellow Urine Appearance Cloudy Urine pH 9.0 H D Ur Specific [place] 1.013 Urine Protein Negative Urine Glucose (UA) Negative Urine Ketones Negative Urine Blood Negative Urine Nitrite Negative Urine Bilirubin Negative Urine Urobilinogen Negative Ur Leukocyte Esterase Negative Urine WBC (Auto) Urine RBC (Auto) Urine Mucus RPR Titer Nonreactive Labs reviewed Assessment: 09/29/18 15:29 Withdrawal sxs Plan: Continue detox Encouraged PO water intake
[2018-09-29] MEDS: THIAMINE HCL 100 MG TABLET (FP) PO SCH (22:31)
[2018-09-29] MEDS: MELATONIN 5 MG TABLETS PO PRN (22:32)
[2018-09-30] MEDS: hydrOXYzine PAMOATE 50 MG CAPSULE (FP) PO PRN ×4 (03:59→22:28)
[2018-09-30] MEDS: NICOTINE POLACRILEX 2 MG GUM BC PRN ×6 (04:02→21:03)
[2018-09-30] MEDS: cloNIDine HCL 0.1 MG TABLET PO PRN ×2 (07:09→17:23)
[2018-09-30] MEDS ORDERED: METHADONE HCL 10 MG TABLET (FOR DETOX USE ONLY) PO ONE (10:00)
[2018-09-30] MEDS: PRENATAL VITAMINS W/ FOLIC ACID TABLET (FP) PO SCH (10:21)
[2018-09-30] MEDS: NICOTINE 21 MG/24 HOURS TOPICAL PATCH TD SCH (10:22)
--- NOTE | 2018-09-30 17:41 | PN ---
BHS Progress Note (SOAP) Subjective: Interrupted sleep. Patient requesting to be discharged home tomorrow at 7am. Objective: 09/30/18 17:39 Last Vital Signs Temp Pulse Resp BP Pulse Ox 96.5 F L 86 18 94/62 09/30/18 15:51 09/30/18 15:51 09/30/18 15:51 09/30/18 15:51 Hypotension noted (94/62) Laboratory Tests 09/27/18 09/27/18 09/27/18 00:01 07:00 07:00 WBC 9.2 RBC 4.72 Hgb 13.1 Hct 40.2 MCV 85.2 MCH 27.7 MCHC 32.5 RDW 14.4 Plt Count 271 D MPV 9.4 Sodium 138 Potassium 4.5 Chloride 103 Carbon Dioxide 27 Anion Gap 8 BUN 17 Creatinine 1.1 Creat Clearance w eGFR > 60 Random Glucose 93 Calcium 9.1 Total Bilirubin 0.3 AST 17 ALT 34 Alkaline Phosphatase 78 Total Protein 7.5 Albumin 3.5 Urine Color Nely Urine Appearance Clear Urine pH 6.0 Ur Specific [place] 1.029 Urine Protein 1+ H Urine Glucose (UA) Negative Urine Ketones Negative Urine Blood Negative Urine Nitrite Negative Urine Bilirubin Negative Urine Urobilinogen Negative Ur Leukocyte Esterase Negative Urine WBC (Auto) 1 Urine RBC (Auto) 2 Urine Mucus Many RPR Titer 09/27/18 09/29/18 07:00 13:25 WBC RBC Hgb Hct MCV MCH MCHC RDW Plt Count MPV Sodium Potassium Chloride Carbon Dioxide Anion Gap BUN Creatinine Creat Clearance w eGFR Random Glucose Calcium Total Bilirubin AST ALT Alkaline Phosphatase Total Protein Albumin Urine Color Yellow Urine Appearance Cloudy Urine pH 9.0 H D Ur Specific [place] 1.013 Urine Protein Negative Urine Glucose (UA) Negative Urine Ketones Negative Urine Blood Negative Urine Nitrite Negative Urine Bilirubin Negative Urine Urobilinogen Negative Ur Leukocyte Esterase Negative Urine WBC (Auto) Urine RBC (Auto) Urine Mucus RPR Titer Nonreactive Labs reviewed Assessment: 09/30/18 17:40 Withdrawal sxs Noted with hypotension Plan: Continue detox Hypotension: asymptomatic, encouraged PO water intake
[2018-09-30] MEDS: THIAMINE HCL 100 MG TABLET (FP) PO SCH (22:28)
[2018-09-30] MEDS: MELATONIN 5 MG TABLETS PO PRN (22:28)
[2018-10-01] MEDS: hydrOXYzine PAMOATE 50 MG CAPSULE (FP) PO PRN (02:28)
[2018-10-01] MEDS: NICOTINE POLACRILEX 2 MG GUM BC PRN (02:28)
[2018-10-01] MEDS: cloNIDine HCL 0.1 MG TABLET PO PRN (04:28)
[2018-10-01] MEDS ORDERED: METHADONE HCL 5 MG TABLET (FOR DETOX USE ONLY) PO ONE (06:00)
[2018-10-01 06:23] VITALS: BP 101/66; PULSE 57; TEMP 98.2
--- NOTE | 2018-10-01 10:00 | PN ---
S Progress Note Note: PT WAS DISCHARGED EARLIER TODAY PER PROTOCOL. THIS PATIENT WAS NEVER SEEN BY THIS PROVIDER PT D/C'D DURING PREVIOUS SHIFT.
--- NOTE | 2018-10-01 10:03 | DS ---
[facility] Detox Discharge Summary Admission Date: 09/26/18 Discharge Date: 10/01/18 - History Present History: Cocaine Dependence, Opioid Dependence Pertinent Past History: PLEASE SEE DX BELOW - Physical Exam Results Vital Signs: Vital Signs Temperature 98.2 F 10/01/18 06:23 Pulse Rate 57 L 10/01/18 06:23 Respiratory Rate 18 10/01/18 06:23 Blood Pressure 101/66 10/01/18 06:23 O2 Sat by Pulse Oximetry (%) Pertinent Admission Physical Exam Findings: WITHDRAWAL SX Laboratory Tests 09/27/18 09/27/18 09/27/18 00:01 07:00 07:00 WBC 9.2 RBC 4.72 Hgb 13.1 Hct 40.2 MCV 85.2 MCH 27.7 MCHC 32.5 RDW 14.4 Plt Count 271 D MPV 9.4 Sodium 138 Potassium 4.5 Chloride 103 Carbon Dioxide 27 Anion Gap 8 BUN 17 Creatinine 1.1 Creat Clearance w eGFR > 60 Random Glucose 93 Calcium 9.1 Total Bilirubin 0.3 AST 17 ALT 34 Alkaline Phosphatase 78 Total Protein 7.5 Albumin 3.5 Urine Color Nely Urine Appearance Clear Urine pH 6.0 Ur Specific [place] 1.029 Urine Protein 1+ H Urine Glucose (UA) Negative Urine Ketones Negative Urine Blood Negative Urine Nitrite Negative Urine Bilirubin Negative Urine Urobilinogen Negative Ur Leukocyte Esterase Negative Urine WBC (Auto) 1 Urine RBC (Auto) 2 Urine Mucus Many RPR Titer 09/27/18 09/29/18 07:00 13:25 WBC RBC Hgb Hct MCV MCH MCHC RDW Plt Count MPV Sodium Potassium Chloride Carbon Dioxide Anion Gap BUN Creatinine Creat Clearance w eGFR Random Glucose Calcium Total Bilirubin AST ALT Alkaline Phosphatase Total Protein Albumin Urine Color Yellow Urine Appearance Cloudy Urine pH 9.0 H D Ur Specific [place] 1.013 Urine Protein Negative Urine Glucose (UA) Negative Urine Ketones Negative Urine Blood Negative Urine Nitrite Negative Urine Bilirubin Negative Urine Urobilinogen Negative Ur Leukocyte Esterase Negative Urine WBC (Auto) Urine RBC (Auto) Urine Mucus RPR Titer Nonreactive - Treatment Hospital Course: Detox Protocol Followed, Detoxed Safely, Responded well, Discharged Condition Good - Medication Discharge Medications: Ambulatory Orders NK [No Known Home Medication] 01/03/18 - Diagnosis (1) Nicotine dependence Status: Chronic Qualifiers: Nicotine product type: cigarettes Substance use status: uncomplicated Qualified Code(s): F17.210 - Nicotine dependence, cigarettes, uncomplicated (2) IVDU (intravenous drug user) Status: Acute (3) Opioid dependence, uncomplicated Status: Acute (4) Cocaine dependence Status: Chronic Qualifiers: Substance use status: uncomplicated Qualified Code(s): F14.20 - Cocaine dependence, uncomplicated - AMA Did Patient Leave Against Medical Advice: No
== END 2018-10-01 07:09 | disposition home or self-care (01) | DRG 897 ==
LOC: YASAS 12:27 → Y3N 16:49
PROC: HZ2ZZZZ Detoxification Services for Substance Abuse Treatment (ICD-10-PCS; principal; 2018-09-26)
DX: F11.23 Opioid dependence with withdrawal (principal); F14.20 Cocaine dependence, uncomplicated; F17.210 Nicotine dependence, cigarettes, uncomplicated; I95.9 Hypotension, unspecified; R82.90 Unspecified abnormal findings in urine
CPT/HCPCS: 36415; 80053; 81003; 81015; 85027; 86593; 93005; 93010; J0735

== ENCOUNTER 2019-02-09 14:01 | Inpatient (IN) | payer OTHER ==
[2019-02-09 16:28] VITALS: BMI 21.4
--- NOTE | 2019-02-09 18:02 | HP ---
COWS - Scale Resting Pulse: 0= [place] 80 or Below Sweatin= Chills/Flushing Restless Observation: 1= Difficult to Sit Still Pupil Size: 0= Normal to Room Light Bone or Joint Aches: 2= Severe Diffuse Aches Runny Nose/ Eye Tearin= Nasal Congestion GI Upset > 30mins: 2= Nausea/Diarrhea Tremor Observation: 1= Tremor [place], Not Seen Yawning Observation: 1= 1-2x During Session Anxiety or Irritability: 1=Feels Anxious/Irritable Goose Flesh Skin: 0=Smooth Skin COWS Score: 10 CIWA Score - Admission Criteria OASAS Guidelines: Admission for Medically Managed Detox: Requires at least one of the followin. CIWA greater than 12 2. Seizures within the past 24 hours 3. Delirium tremens within the past 24 hours 4. Hallucinations within the past 24 hours 5. Acute intervention needed for co occurring medical disorder 6. Acute intervention needed for co occurring psychiatric disorder 7. Severe withdrawal that cannot be handled at a lower level of care (continued vomiting, continued diarrhea, abnormal vital signs) requiring intravenous medication and/or fluids 8. Admission ROS [facility] Allergies/Adverse Reactions: Allergies Allergy/AdvReac Type Severity Reaction Status Date / Time No Known Allergies Allergy Verified 02/09/19 16:39 History of Present Illness: pt here requesting detox from opiate use , reports 10-15 bags/day since age 20 , latest use 13 hours ago , IVDU in [facility] [facility] since age 32 , needles from the pharmacy , denies sharing, + re-using, abscess in the past, most recently 5 years ago, denies OD . Detox x " a few " , [facility] , no outpt program since early [facility] . Longest sobriety : 5 years w/ AA meetings , age [age] , relapse after stopping going to meetings . 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 Legal ; court 03/20/19 , arrested September 2018 for buying heroin . planning to complete detox/ rehab and is going to [facility] afterwards . Exam Limitations: No Limitations - Ebola screening Have you traveled outside of the country in the last 21 days: No Have you had contact with anyone from an Ebola affected area: No Have you been sick,other than usual withdrawal symptoms: No Do you have a fever: No - Review of Systems Constitutional: See HPI EENT: reports: See HPI Respiratory: reports: No Symptoms reported Cardiac: reports: No Symptoms Reported GI: reports: See HPI : reports: No Symptoms Reported Musculoskeletal: reports: Back Pain, Muscle Pain Integumentary: reports: No Symptoms Reported Neuro: reports: No Symptoms reported Endocrine: reports: No Symptoms Reported Psychiatric: reports: Orientated x3, Anxious Patient History - Patient Medical History Hx Anemia: No Hx Asthma: No Hx Chronic Obstructive Pulmonary Disease (COPD): No Hx Cancer: No Hx Cardiac Disorders: No Hx Congestive Heart Failure: No Hx Hypertension: No Hx Hypercholesterolemia: No Hx Pacemaker: No HX Cerebrovascular Accident: No Hx Seizures: No Hx Dementia: No Hx Diabetes: No Hx Gastrointestinal Disorders: No Hx Liver Disease: No Hx Genitourinary Disorders: No Hx Sexually Transmitted Disorders: No Hx Renal Disease (ESRD): No Hx Thyroid Disease: No Hx Human Immunodeficiency Virus (HIV): No (negative) Hx Hepatitis C: No (negative) Hx Depression: No Hx Suicide Attempt: No Hx Bipolar Disorder: No Hx Schizophrenia: No - Patient Surgical History Past Surgical History: Yes Hx Neurologic Surgery: No Hx Cataract Extraction: No Hx Cardiac Surgery: No Hx Lung Surgery: No Hx Breast Surgery: No Hx Breast Biopsy: No Hx Abdominal Surgery: No Hx Appendectomy: No Hx Cholecystectomy: No Hx Genitourinary Surgery: No Hx Section: No Hx Orthopedic Surgery: Yes (R wrist sx for fx at age 14 yrs old.) Other Surgical History: R INGUINAL HERNIA REPAIR IN 2006 Anesthesia Reaction: No - PPD History Previous Implant?: Yes Documented Results: Negative w/proof Date: 01/05/18 Results: 0 mm - Smoking Cessation Smoking history: Current every day smoker Have you smoked in the past 12 months: Yes Aproximately how many cigarettes per day: 20 Hx Chewing Tobacco Use: No Initiated information on smoking cessation: No - Substances Abused Heroin Route: Injection Frequency: Daily Amount used: 10 bags Age of first use: 20 Date of Last Use: 02/09/19 Cocaine Route: Smoking Frequency: Daily Amount used: $10 worth Age of first use: 17 Date of Last Use: 02/06/19 Family Disease History - Family Disease History Family Disease History: Diabetes: Father (alive ) Other Family History: no children Admission Physical Exam BHS - Vital Signs Vital Signs: Vital Signs - 24 hr 02/09/19 16:26 Temperature 98.4 F Pulse Rate 73 Respiratory 18 Rate Blood Pressure 103/71 - Physical General Appearance: Yes: Disheveled, Mild Distress HEENTM: Yes: EOMI, Hearing grossly Normal, Normocephalic, Normal Voice, Nasal Congestion, Other (glasses - reports astigmatism , denies dysphagia) Respiratory: Yes: Chest Non-Tender, Lungs Clear, Normal Breath Sounds Neck: Yes: No masses,lesions,Nodules, Trachea in good position Cardiology: Yes: Regular Rhythm, Regular Rate, S1, S2 Abdominal: Yes: Normal Bowel Sounds, Non Tender, Soft Back: Yes: Normal Inspection Musculoskeletal: Yes: Gait Steady Extremities: Yes: Normal Capillary Refill, Normal Range of Motion, Non-Tender, Other (edema and induration dorsum of hands , + trakc workman) Neurological: Yes: Motor Strength 5/5 Integumentary: Yes: Normal Color, Track Workman - Diagnostic (1) Opioid dependence with withdrawal Current Visit: Yes Status: Acute (2) Cocaine dependence Current Visit: Yes Status: Chronic Qualifiers: Substance use status: uncomplicated Qualified Code(s): F14.20 - Cocaine dependence, uncomplicated (3) Nicotine dependence Current Visit: Yes Status: Chronic Qualifiers: Nicotine product type: cigarettes Substance use status: uncomplicated Qualified Code(s): F17.210 - Nicotine dependence, cigarettes, uncomplicated BHS Breath Alcohol Content Breath Alcohol Content: 0 Urine Drug Screen - Results Drug Screen Negative: No Urine Drug Screen Results: ASIM-Cocaine, OPI-Opiates Inpatient Rehab Admission - Rehab Decision to Admit Inpatient rehab admission?: No
[2019-02-09] MEDS ORDERED: METHOCARBAMOL 500 MG TABLET PO PRN (18:08)
[2019-02-09] MEDS ORDERED: ACETAMINOPHEN 325 MG TABLET (FP) PO PRN ×2 (18:08)
[2019-02-09] MEDS ORDERED: MELATONIN 5 MG TABLETS PO PRN (18:08)
[2019-02-09] MEDS ORDERED: MENTHOL/PHENOL 1 EACH UD MM PRN (18:08)
[2019-02-09] MEDS ORDERED: MAG HYDROX/AL HYDROX/SIMETH 30 ML UNIT-DOSE CUP PO PRN (18:08)
[2019-02-09] MEDS ORDERED: MAGNESIUM CITRATE 300 ML BOTTLE PO PRN (18:08)
[2019-02-09] MEDS ORDERED: MAGNESIUM HYDROX 2400MG/30ML ORAL SUSPENSION 30 ML CUP PO PRN (18:08)
[2019-02-09] MEDS ORDERED: IBUPROFEN 400 MG TABLET (FP) PO PRN (18:08)
[2019-02-09] MEDS ORDERED: DICYCLOMINE HCL 10 MG CAPSULE PO PRN (18:08)
[2019-02-09] MEDS ORDERED: METHADONE HCL 10 MG TABLET (FOR DETOX USE ONLY) PO ONE ×2 (19:45→23:00)
[2019-02-09] MEDS: NICOTINE POLACRILEX 2 MG GUM BUC PRN (20:08)
[2019-02-09] MEDS: cloNIDine HCL 0.1 MG TABLET PO PRN (20:57)
[2019-02-09] MEDS: THIAMINE HCL 100 MG TABLET (FP) PO SCH (22:43)
[2019-02-10] MEDS: cloNIDine HCL 0.1 MG TABLET PO PRN ×4 (05:36→21:01)
[2019-02-10] MEDS: NICOTINE POLACRILEX 2 MG GUM BUC PRN ×5 (08:49→20:05)
[2019-02-10] MEDS: PRENATAL VITAMINS W/ FOLIC ACID TABLET (FP) PO SCH (09:38)
[2019-02-10] MEDS ORDERED: METHADONE HCL 5 MG TABLET (FOR DETOX USE ONLY) PO ONE (10:00)
[2019-02-10] MEDS ORDERED: METHADONE HCL 10 MG TABLET (FOR DETOX USE ONLY) PO ONE (14:06)
--- NOTE | 2019-02-10 14:16 | PN ---
BHS COWS - Scale Resting Pulse: 1= [place] 81-100 Sweatin= Chills/Flushing Restless Observation: 3= Extraneous Movement Pupil Size: 2= Moderately Dilated Bone or Joint Aches: 2= Severe Diffuse Aches Runny Nose/ Eye Tearin= Constantly Teary/Runny GI Upset > 30mins: 2= Nausea/Diarrhea Tremor Observation of Outstretched Hands: 2= Slight Tremor Visible Yawning Observation: 2= >3x During Session Anxiety or Irritability: 2=Irritable/Anxious Goose Flesh Skin: 3=Piloerection COWS Score: 24 [facility] Progress Note (SOAP) Subjective: pt states he feels like he is in withdrawal- rec'd 40mg methadone yesterday day of admission, rec'd 15mg this morning COWs score > 20 O: Vital Signs - 24 hr 02/09/19 02/09/19 02/09/19 16:26 19:29 22:19 Temperature 98.4 F 98.2 F 98.1 F Pulse Rate 73 82 80 Respiratory 18 18 18 Rate Blood Pressure 103/71 121/79 117/75 02/10/19 02/10/19 02/10/19 00:30 03:30 06:00 Temperature 97.7 F Pulse Rate 64 Respiratory 18 18 16 Rate Blood Pressure 137/88 02/10/19 02/10/19 09:24 13:58 Temperature 97.9 F 98.1 F Pulse Rate 75 78 Respiratory 16 16 Rate Blood Pressure 92/71 123/64 labs pending a/p: opiate detox- pt still with withdrawal Sx- will give additional 10mg methadone today and clonidine/vistaril q 4h d/w option of methadone/suboxone MAT
[2019-02-10] MEDS: NICOTINE 21 MG/24 HOURS TOPICAL PATCH TD SCH (14:25)
[2019-02-10] MEDS: hydrOXYzine PAMOATE 50 MG CAPSULE (FP) PO PRN ×2 (15:38→21:01)
[2019-02-10] MEDS: THIAMINE HCL 100 MG TABLET (FP) PO SCH (22:24)
[2019-02-11] MEDS: hydrOXYzine PAMOATE 50 MG CAPSULE (FP) PO PRN ×5 (00:50→22:37)
[2019-02-11] MEDS: cloNIDine HCL 0.1 MG TABLET PO PRN ×5 (00:50→22:37)
[2019-02-11] MEDS: NICOTINE POLACRILEX 2 MG GUM BUC PRN ×3 (06:04→22:37)
[2019-02-11] MEDS ORDERED: METHADONE HCL 10 MG TABLET (FOR DETOX USE ONLY) PO ONE (10:00)
[2019-02-11] MEDS: NICOTINE 21 MG/24 HOURS TOPICAL PATCH TD SCH (10:05)
[2019-02-11] MEDS: PRENATAL VITAMINS W/ FOLIC ACID TABLET (FP) PO SCH (10:05)
[2019-02-11] MEDS ORDERED: LOPERAMIDE HCL 2 MG CAPSULE PO PRN (10:47)
--- NOTE | 2019-02-11 10:50 | PN ---
S COWS - Scale Resting Pulse: 0= [place] 80 or Below Sweatin= Chills/Flushing Restless Observation: 1= Difficult to Sit Still Pupil Size: 1= Pupils >than Normal Bone or Joint Aches: 1= Mild Discomfort Runny Nose/ Eye Tearin= Runny Nose/Eyes GI Upset > 30mins: 3= Vomiting/Diarrhea Tremor Observation of Outstretched Hands: 2= Slight Tremor Visible Yawning Observation: 1= 1-2x During Session Anxiety or Irritability: 2=Irritable/Anxious Goose Flesh Skin: 0=Smooth Skin COWS Score: 14 S Progress Note (SOAP) Subjective: c/o of diarrhea, anorexia, fatigue Objective: 02/11/19 10:49 Vital Signs Temperature 97.0 F L 02/11/19 09:38 Pulse Rate 71 02/11/19 09:54 Respiratory Rate 18 02/11/19 09:54 Blood Pressure 112/65 02/11/19 09:54 O2 Sat by Pulse Oximetry (%) Laboratory Last Values WBC 6.6 K/mm3 (4.0-10.0) 02/11/19 07:30 RBC 4.36 M/mm3 (4.00-5.60) 02/11/19 07:30 Hgb 12.8 GM/dL (11.7-16.9) 02/11/19 07:30 Hct 37.1 % (35.4-49) 02/11/19 07:30 MCV 84.9 fl (80-96) 02/11/19 07:30 MCH 29.4 pg (25.7-33.7) 02/11/19 07:30 MCHC 34.6 g/dl (32.0-35.9) 02/11/19 07:30 RDW 14.7 % (11.9-15.9) 02/11/19 07:30 Plt Count 233 K/MM3 (134-434) 02/11/19 07:30 MPV 10.2 fl (7.5-11.1) 02/11/19 07:30 Sodium 136 mmol/L (136-145) 02/11/19 07:30 Potassium 4.2 mmol/L (3.5-5.1) 02/11/19 07:30 Chloride 105 mmol/L (98-107) 02/11/19 07:30 Carbon Dioxide 24 mmol/L (21-32) 02/11/19 07:30 Anion Gap 7 MMOL/L (8-16) L 02/11/19 07:30 BUN 13 mg/dL (7-18) 02/11/19 07:30 Creatinine 0.9 mg/dL (0.55-1.3) 02/11/19 07:30 Creat Clearance w eGFR 92.99 (>60) 02/11/19 07:30 Random Glucose 114 mg/dL (74-106) H 02/11/19 07:30 Calcium 9.0 mg/dL (8.5-10.1) 02/11/19 07:30 Total Bilirubin 0.5 mg/dL (0.2-1) 02/11/19 07:30 AST 10 U/L (15-37) L 02/11/19 07:30 ALT 23 U/L (13-61) 02/11/19 07:30 Alkaline Phosphatase 69 U/L (45-117) 02/11/19 07:30 Total Protein 7.5 g/dl (6.4-8.2) 02/11/19 07:30 Albumin 3.7 g/dl (3.4-5.0) 02/11/19 07:30 RPR Titer Nonreactive (NONREACTIVE) 02/11/19 07:30 LABS NOTED Assessment: 02/11/19 13:53 WITHDRAWAL SX Plan: immodium prn neurontin 100 tid ensure po BID Increase po fluids continue detox continue to monitor
[2019-02-11 10:53] LABS: ALBUMIN 3.7 g/dl (3.4-5.0); ALK PHOS 69 U/L (45-117); ANION GAP 7 MMOL/L (8-16); BILIRUBIN,TOTAL 0.5 mg/dL (0.2-1); BLOOD UREA NITROGEN 13 mg/dL (7-18); CHLORIDE 105 mmol/L (98-107); CO2 24 mmol/L (21-32); CREATININE 0.9 mg/dL (0.55-1.3); GLUCOSE,RANDOM 114 mg/dL (74-106); POTASSIUM 4.2 mmol/L (3.5-5.1); SGOT/AST 10 U/L (15-37); SGPT/ALT 23 U/L (13-61); SODIUM 136 mmol/L (136-145); TOT PROT 7.5 g/dl (6.4-8.2)
[2019-02-11 11:20] LABS: HEMATOCRIT 37.1 % (35.4-49); HEMOGLOBIN 12.8 GM/dL (11.7-16.9); MCH 29.4 pg (25.7-33.7); MCHC 34.6 g/dl (32.0-35.9); MEAN CELL VOLUME 84.9 fl (80-96); MEAN PLT VOLUME 10.2 fl (7.5-11.1); PLATELET COUNT 233 K/MM3 (134-434); RBC 4.36 M/mm3 (4.00-5.60); RDW 14.7 % (11.9-15.9); WHITE BLOOD COUNT 6.6 K/mm3 (4.0-10.0)
[2019-02-11] MEDS: GABAPENTIN 100 MG CAPSULE (FP) PO SCH ×2 (13:37→22:01)
[2019-02-11] MEDS: THIAMINE HCL 100 MG TABLET (FP) PO SCH (22:01)
[2019-02-12] MEDS: GABAPENTIN 100 MG CAPSULE (FP) PO SCH (05:38)
[2019-02-12] MEDS ORDERED: METHADONE HCL 5 MG TABLET (FOR DETOX USE ONLY) PO ONE (06:00)
[2019-02-12] MEDS: hydrOXYzine PAMOATE 50 MG CAPSULE (FP) PO PRN (06:10)
[2019-02-12] MEDS: NICOTINE POLACRILEX 2 MG GUM BUC PRN (06:11)
[2019-02-12 06:37] VITALS: BP 104/73; PULSE 75; TEMP 96.6
--- NOTE | 2019-02-12 11:50 | DS ---
[facility] Detox Discharge Summary Admission Date: 02/09/19 Discharge Date: 02/12/19 - History Present History: Cocaine Dependence, Opioid Dependence Additional Comments: Patient completed detox successfully; discharged safely. Patient to follow up with PCP within 1-2 weeks. Pertinent Past History: Nicotine dependence Cocaine dependence Opioid dependence - Physical Exam Results Vital Signs: Vital Signs Temperature 96.6 F L 02/12/19 06:00 Pulse Rate 75 02/12/19 06:00 Respiratory Rate 18 02/12/19 06:00 Blood Pressure 104/73 02/12/19 06:00 O2 Sat by Pulse Oximetry (%) Pertinent Admission Physical Exam Findings: Withdrawal symptoms Laboratory Tests 02/11/19 02/11/19 02/11/19 07:30 07:30 07:30 WBC 6.6 RBC 4.36 Hgb 12.8 Hct 37.1 MCV 84.9 MCH 29.4 MCHC 34.6 RDW 14.7 Plt Count 233 MPV 10.2 Sodium 136 Potassium 4.2 Chloride 105 Carbon Dioxide 24 Anion Gap 7 L BUN 13 Creatinine 0.9 Creat Clearance w eGFR 92.99 Random Glucose 114 H Calcium 9.0 Total Bilirubin 0.5 AST 10 L ALT 23 Alkaline Phosphatase 69 Total Protein 7.5 Albumin 3.7 RPR Titer Nonreactive Labs reviewed - Treatment Hospital Course: Detox Protocol Followed, Detoxed Safely, Responded well, Discharged Condition Good - Medication Discharge Medications: Ambulatory Orders NK [No Known Home Medication] 01/03/18 - Diagnosis (1) Opioid dependence with withdrawal Status: Acute (2) Cocaine dependence Status: Chronic Qualifiers: Substance use status: uncomplicated Qualified Code(s): F14.20 - Cocaine dependence, uncomplicated (3) Nicotine dependence Status: Chronic Qualifiers: Nicotine product type: cigarettes Substance use status: uncomplicated Qualified Code(s): F17.210 - Nicotine dependence, cigarettes, uncomplicated - AMA Did Patient Leave Against Medical Advice: No (F/U with PCP within 1-2 weeks)
== END 2019-02-12 08:55 | disposition home or self-care (01) | DRG 773 ==
LOC: YASAS 14:01 → Y6N 18:48
PROVIDERS: ADMIT Surgery; ATTEND Surgery
PROC: HZ2ZZZZ Detoxification Services for Substance Abuse Treatment (ICD-10-PCS; principal; 2019-02-09)
DX: F11.23 Opioid dependence with withdrawal (principal); F14.20 Cocaine dependence, uncomplicated; F17.213 Nicotine dependence, cigarettes, with withdrawal
CPT/HCPCS: 36415; 80053; 85027; 86593; J0735

== ENCOUNTER 2020-10-21 13:34 | Inpatient (IN) | payer OTHER ==
[2020-10-21 15:59] VITALS: BMI 22.1
[2020-10-21] MEDS ORDERED: ACETAMINOPHEN 325 MG TABLET (FP) PO PRN ×2 (16:17)
[2020-10-21] MEDS ORDERED: BISMUTH SUBSALICYLATE 524 MG/30 ML UD PO PRN (16:17)
[2020-10-21] MEDS ORDERED: MENTHOL/PHENOL 1 EACH UD MM PRN (16:17)
[2020-10-21] MEDS ORDERED: ONDANSETRON *ODT* 4 MG TABLET SL PRN (16:17)
[2020-10-21] MEDS ORDERED: MAG HYDROX/AL HYDROX/SIMETH 30 ML UNIT-DOSE CUP PO PRN (16:17)
[2020-10-21] MEDS ORDERED: MAGNESIUM HYDROX 2400MG/30ML ORAL SUSPENSION 30 ML CUP PO PRN (16:17)
[2020-10-21] MEDS ORDERED: METHADONE HCL 10 MG TABLET (FOR DETOX USE ONLY) PO ONE (16:17)
[2020-10-21] MEDS ORDERED: MAGNESIUM CITRATE 300 ML BOTTLE PO PRN (16:17)
[2020-10-21] MEDS ORDERED: IBUPROFEN 400 MG TABLET (FP) PO PRN (16:17)
[2020-10-21] MEDS: PRENATAL VITAMINS W/ FOLIC ACID TABLET (FP) PO SCH (17:11)
[2020-10-21] MEDS: hydrOXYzine PAMOATE 25 MG CAPSULE (FP) PO SCH ×2 (17:12→22:28)
[2020-10-21] MEDS: NICOTINE 21 MG/24 HOURS TOPICAL PATCH TD SCH (17:13)
[2020-10-21] MEDS: NICOTINE POLACRILEX 2 MG GUM BUC PRN ×2 (17:19→22:29)
[2020-10-21] MEDS: MELATONIN 5 MG TABLETS PO SCH (22:28)
[2020-10-21] MEDS: THIAMINE HCL 100 MG TABLET (FP) PO SCH (22:28)
[2020-10-22] MEDS: hydrOXYzine PAMOATE 25 MG CAPSULE (FP) PO SCH ×5 (05:38→22:20)
[2020-10-22] MEDS ORDERED: METHADONE HCL 5 MG TABLET (FOR DETOX USE ONLY) ONE (08:56)
[2020-10-22] MEDS ORDERED: METHADONE HCL 10 MG TABLET (FOR DETOX USE ONLY) ONE (08:57)
[2020-10-22] MEDS ORDERED: METHADONE (DETOX) 20 MG, METHADONE (DETOX) 5 MG PO ONE (10:00)
[2020-10-22] MEDS: NICOTINE 21 MG/24 HOURS TOPICAL PATCH TD SCH (10:06)
[2020-10-22] MEDS: PRENATAL VITAMINS W/ FOLIC ACID TABLET (FP) PO SCH (10:06)
[2020-10-22] MEDS: BACITRACIN 0.9 GM PACKET TP SCH ×2 (10:08→22:20)
[2020-10-22] MEDS: cloNIDine HCL 0.1 MG TABLET PO PRN ×2 (10:08→22:20)
[2020-10-22 11:10] LABS: HEMATOCRIT 41.9 % (35.4-49); HEMOGLOBIN 13.6 GM/dL (11.7-16.9); MCH 28.1 pg (25.7-33.7); MCHC 32.4 g/dl (32.0-35.9); MEAN CELL VOLUME 86.8 fl (80-96); MEAN PLT VOLUME 9.6 fl (7.5-11.1); PLATELET COUNT 261 K/MM3 (134-434); RBC 4.83 M/mm3 (4.00-5.60); RDW 15.2 % (11.9-15.9)
[2020-10-22 11:15] LABS: POTASSIUM 4.7 mmol/L (3.5-5.1)
[2020-10-22 11:47] LABS: BLOOD UREA NITROGEN 16.8 mg/dL (7-18); CALCIUM 9.3 mg/dL (8.5-10.1)
[2020-10-22 11:48] LABS: ALBUMIN 3.6 g/dl (3.4-5.0); CREATININE 0.9 mg/dL (0.55-1.3)
[2020-10-22 11:52] LABS: BILIRUBIN,TOTAL 0.6 mg/dL (0.2-1)
[2020-10-22 11:53] LABS: TOT PROT 7.6 g/dl (6.4-8.2)
[2020-10-22] MEDS: NICOTINE POLACRILEX 2 MG GUM BUC PRN ×2 (12:01→16:57)
[2020-10-22] MEDS: diazePAM 5 MG TABLET PO PRN ×2 (12:01→17:01)
[2020-10-22] MEDS: THIAMINE HCL 100 MG TABLET (FP) PO SCH (22:20)
[2020-10-22] MEDS: MELATONIN 5 MG TABLETS PO SCH (22:21)
[2020-10-23] MEDS: hydrOXYzine PAMOATE 25 MG CAPSULE (FP) PO SCH ×5 (05:25→22:07)
[2020-10-23] MEDS: diazePAM 5 MG TABLET PO PRN ×4 (05:29→22:05)
[2020-10-23] MEDS: METHOCARBAMOL 500 MG TABLET PO PRN (05:30)
[2020-10-23] MEDS: NICOTINE POLACRILEX 2 MG GUM BUC PRN ×2 (05:33→17:39)
[2020-10-23] MEDS: cloNIDine HCL 0.1 MG TABLET PO PRN ×3 (08:49→22:07)
[2020-10-23] MEDS: BACITRACIN 0.9 GM PACKET TP SCH ×2 (09:32→22:05)
[2020-10-23] MEDS: PRENATAL VITAMINS W/ FOLIC ACID TABLET (FP) PO SCH (09:33)
[2020-10-23] MEDS: NICOTINE 21 MG/24 HOURS TOPICAL PATCH TD SCH (09:33)
[2020-10-23] MEDS ORDERED: METHADONE HCL 10 MG TABLET (FOR DETOX USE ONLY) PO ONE (10:00)
[2020-10-23] MEDS: THIAMINE HCL 100 MG TABLET (FP) PO SCH (22:06)
[2020-10-23] MEDS: MELATONIN 5 MG TABLETS PO SCH (22:06)
[2020-10-24] MEDS: diazePAM 5 MG TABLET PO PRN ×5 (03:59→22:11)
[2020-10-24] MEDS: NICOTINE POLACRILEX 2 MG GUM BUC PRN ×5 (06:52→22:13)
[2020-10-24] MEDS: hydrOXYzine PAMOATE 25 MG CAPSULE (FP) PO SCH ×5 (06:52→22:12)
[2020-10-24] MEDS ORDERED: METHADONE HCL 5 MG TABLET (FOR DETOX USE ONLY) ONE (08:35)
[2020-10-24] MEDS ORDERED: METHADONE HCL 10 MG TABLET (FOR DETOX USE ONLY) ONE (08:36)
[2020-10-24] MEDS: METHOCARBAMOL 500 MG TABLET PO PRN (09:02)
[2020-10-24] MEDS: NICOTINE 21 MG/24 HOURS TOPICAL PATCH TD SCH (09:44)
[2020-10-24] MEDS: BACITRACIN 0.9 GM PACKET TP SCH ×2 (09:44→22:12)
[2020-10-24] MEDS: PRENATAL VITAMINS W/ FOLIC ACID TABLET (FP) PO SCH (09:44)
[2020-10-24] MEDS ORDERED: METHADONE (DETOX) 10 MG, METHADONE (DETOX) 5 MG PO ONE (10:00)
[2020-10-24] MEDS: cloNIDine HCL 0.1 MG TABLET PO PRN (18:31)
[2020-10-24] MEDS: MELATONIN 5 MG TABLETS PO SCH (22:12)
[2020-10-24] MEDS: THIAMINE HCL 100 MG TABLET (FP) PO SCH (22:12)
[2020-10-25] MEDS: diazePAM 5 MG TABLET PO PRN ×3 (05:45→21:13)
[2020-10-25] MEDS: hydrOXYzine PAMOATE 25 MG CAPSULE (FP) PO SCH ×2 (05:46→12:57)
[2020-10-25] MEDS: METHOCARBAMOL 500 MG TABLET PO PRN ×2 (08:42→17:01)
[2020-10-25] MEDS: cloNIDine HCL 0.1 MG TABLET PO PRN ×2 (08:42→20:16)
[2020-10-25] MEDS: NICOTINE POLACRILEX 2 MG GUM BUC PRN ×3 (08:43→20:17)
[2020-10-25] MEDS ORDERED: METHADONE HCL 10 MG TABLET (FOR DETOX USE ONLY) PO ONE (10:00)
[2020-10-25] MEDS: BACITRACIN 0.9 GM PACKET TP SCH ×2 (10:23→21:12)
[2020-10-25] MEDS: NICOTINE 21 MG/24 HOURS TOPICAL PATCH TD SCH (10:24)
[2020-10-25] MEDS: PRENATAL VITAMINS W/ FOLIC ACID TABLET (FP) PO SCH (10:42)
[2020-10-25] MEDS: hydrOXYzine PAMOATE 25 MG CAPSULE (FP) PO PRN ×2 (17:01→21:12)
[2020-10-25] MEDS: THIAMINE HCL 100 MG TABLET (FP) PO SCH (21:12)
[2020-10-25] MEDS: MELATONIN 5 MG TABLETS PO SCH (22:11)
[2020-10-26] MEDS: hydrOXYzine PAMOATE 25 MG CAPSULE (FP) PO PRN (04:18)
[2020-10-26] MEDS: NICOTINE POLACRILEX 2 MG GUM BUC PRN (04:19)
[2020-10-26] MEDS ORDERED: METHADONE HCL 5 MG TABLET (FOR DETOX USE ONLY) PO ONE (06:00)
[2020-10-26 07:37] VITALS: BP 99/76; PULSE 86; TEMP 98
== END 2020-10-26 07:00 | disposition home or self-care (01) | DRG 773 ==
LOC: YASAS 13:34 → Y6N 16:14
PROVIDERS: ADMIT Allergy & Immunology; ATTEND Allergy & Immunology
PROC: HZ2ZZZZ Detoxification Services for Substance Abuse Treatment (ICD-10-PCS; principal; 2020-10-21)
DX: F11.23 Opioid dependence with withdrawal (principal); F17.210 Nicotine dependence, cigarettes, uncomplicated; F19.280 Other psychoactive substance dependence with psychoactive substance-induced anxiety disorder
CPT/HCPCS: 36415; 80053; 85027; 86780; C9803; J0735; U0003

== ENCOUNTER 2023-12-05 15:03 | Inpatient (IN) | payer OTHER ==
[2023-12-05 15:33] VITALS: BMI 23.9
[2023-12-05] MEDS ORDERED: BENZOCAINE/MENTHOL (CHLORASEPTIC ) LOZENGE MM PRN (17:56)
[2023-12-05] MEDS ORDERED: hydrOXYzine PAMOATE 50 MG CAPSULE (FP) PO PRN (17:56)
[2023-12-05] MEDS ORDERED: MAGNESIUM HYDROX 2400MG/30ML ORAL SUSPENSION 30 ML CUP PO PRN (17:56)
[2023-12-05] MEDS ORDERED: BISMUTH SUBSALICYLATE 524 MG/30 ML PO PRN (17:56)
[2023-12-05] MEDS ORDERED: IBUPROFEN 400 MG TABLET (FP) PO PRN (17:56)
[2023-12-05] MEDS ORDERED: LOPERAMIDE HCL 2 MG CAPSULE PO PRN (17:56)
[2023-12-05] MEDS ORDERED: POLYETHYLENE GLYCOL (HEALTHYLAX) 3350 17 GM PACKET PO PRN (17:56)
[2023-12-05] MEDS ORDERED: guaiFENesin 600 MG TABLET.ER (FP) PO PRN (17:56)
[2023-12-05] MEDS ORDERED: ACETAMINOPHEN 325 MG TABLET (FP) PO PRN (17:56)
[2023-12-05] MEDS ORDERED: BENZONATATE 200 MG CAPSULE PO PRN (17:56)
[2023-12-05] MEDS ORDERED: MAG HYDROX/AL HYDROX/SIMETH 30 ML UNIT-DOSE CUP PO PRN (17:56)
[2023-12-05] MEDS ORDERED: NALOXONE HCL (KLOXXADO) 8 MG SPRAY NS PRN (17:56)
[2023-12-05] MEDS ORDERED: NALOXONE HCL 0.4 MG/ML VIAL IM PRN (17:56)
[2023-12-05] MEDS ORDERED: DICYCLOMINE HCL 10 MG CAPSULE PO PRN (17:56)
[2023-12-05] MEDS ORDERED: methaDONE HCL 10 MG TABLET (FOR DETOX USE ONLY) PO ONE (18:51)
[2023-12-05] MEDS: NICOTINE POLACRILEX 2 MG GUM BUC PRN (19:16)
[2023-12-05] MEDS ORDERED: MELATONIN 5 MG TABLETS PO SCH (22:00)
[2023-12-05] MEDS: THIAMINE HCL 100 MG TABLET (FP) PO SCH (22:44)
[2023-12-05] MEDS: ALBUTEROL SO4 HFA INHALER IH SCH (22:45)
[2023-12-06] MEDS: ALBUTEROL SO4 HFA INHALER IH SCH ×2 (01:18→06:59)
[2023-12-06] MEDS: cloNIDine HCL 0.1 MG TABLET PO PRN ×3 (07:18→22:07)
[2023-12-06] MEDS: NICOTINE POLACRILEX 2 MG GUM BUC PRN ×3 (07:19→16:53)
[2023-12-06] MEDS: PRENATAL VITAMINS W/ FOLIC ACID TABLET (FP) PO SCH (10:09)
[2023-12-06] MEDS ORDERED: GABAPENTIN 300 MG CAPSULE PO ONE (11:15)
[2023-12-06] MEDS ORDERED: ALBUTEROL SO4 HFA INHALER IH PRN (11:17)
[2023-12-06] MEDS: NICOTINE 21 MG/24 HOURS TOPICAL PATCH TD SCH (11:26)
[2023-12-06] MEDS: GABAPENTIN 300 MG CAPSULE PO SCH ×2 (13:15→22:07)
[2023-12-06 15:21] LABS: HEMATOCRIT 40.1 % (35.4-49); HEMOGLOBIN 13.4 GM/dL (11.7-16.9); MCH 29.1 pg (25.7-33.7); MCHC 33.4 g/dl (32.0-35.9); MEAN CELL VOLUME 87.2 fl (80-96); MEAN PLT VOLUME 9.6 fl (7.5-11.1); PLATELET COUNT 270 10^3/uL (134-434); RDW 14.6 % (11.9-15.9); WHITE BLOOD COUNT 10.2 K/mm3 (4.0-10.0)
[2023-12-06 15:24] LABS: CHLORIDE 106 mmol/L (98-107); POTASSIUM 4.3 mmol/L (3.5-5.1); SODIUM 137 mmol/L (136-145)
[2023-12-06 15:26] LABS: ANION GAP 3 mmol/L (4-13); CO2 28 mmol/L (21-32); GLUCOSE,RANDOM 103 mg/dL (74-106)
[2023-12-06 15:28] LABS: ALBUMIN 3.6 g/dl (3.4-5.0)
[2023-12-06 15:30] LABS: CREATININE 0.9 mg/dL (0.55-1.3); SGOT/AST 14 U/L (15-37); SGPT/ALT 23 U/L (13-61)
[2023-12-06 15:32] LABS: ALK PHOS 53 U/L (45-117); BILIRUBIN,TOTAL 0.4 mg/dL (0.2-1); TOT PROT 6.9 g/dl (6.4-8.2)
[2023-12-06] MEDS: IBUPROFEN 600 MG TABLET (FP) PO PRN (17:48)
[2023-12-06] MEDS: THIAMINE HCL 100 MG TABLET (FP) PO SCH (22:07)
[2023-12-06] MEDS: SUVOREXANT 10 MG TABLET PO PRN (22:08)
[2023-12-07] MEDS: GABAPENTIN 300 MG CAPSULE PO SCH ×3 (05:13→22:08)
[2023-12-07] MEDS: METHOCARBAMOL 500 MG TABLET PO PRN ×3 (05:15→22:08)
[2023-12-07] MEDS: hydrOXYzine PAMOATE 25 MG CAPSULE (FP) PO PRN ×2 (05:16→18:26)
[2023-12-07] MEDS: cloNIDine HCL 0.1 MG TABLET PO PRN ×4 (09:19→22:08)
[2023-12-07] MEDS: NICOTINE POLACRILEX 2 MG GUM BUC PRN ×3 (09:21→17:35)
[2023-12-07] MEDS ORDERED: methaDONE HCL 10 MG TABLET (FOR DETOX USE ONLY) PO ONE (10:00)
[2023-12-07] MEDS: NICOTINE 21 MG/24 HOURS TOPICAL PATCH TD SCH (10:17)
[2023-12-07] MEDS: PRENATAL VITAMINS W/ FOLIC ACID TABLET (FP) PO SCH (10:17)
[2023-12-07] MEDS: ONDANSETRON *ODT* 4 MG TABLET SL PRN ×2 (10:19→22:10)
[2023-12-07] MEDS: IBUPROFEN 600 MG TABLET (FP) PO PRN (15:09)
[2023-12-07] MEDS: THIAMINE HCL 100 MG TABLET (FP) PO SCH (22:08)
[2023-12-07] MEDS: SUVOREXANT 10 MG TABLET PO PRN (22:09)
[2023-12-08] MEDS: GABAPENTIN 300 MG CAPSULE PO SCH ×3 (05:14→22:10)
[2023-12-08] MEDS: NICOTINE POLACRILEX 2 MG GUM BUC PRN ×4 (05:16→19:46)
[2023-12-08] MEDS: ONDANSETRON *ODT* 4 MG TABLET SL PRN ×2 (05:16→17:15)
[2023-12-08] MEDS: hydrOXYzine PAMOATE 25 MG CAPSULE (FP) PO PRN ×2 (07:53→17:14)
[2023-12-08] MEDS: NICOTINE 21 MG/24 HOURS TOPICAL PATCH TD SCH (09:51)
[2023-12-08] MEDS: METHOCARBAMOL 500 MG TABLET PO PRN ×2 (09:51→17:14)
[2023-12-08] MEDS: PRENATAL VITAMINS W/ FOLIC ACID TABLET (FP) PO SCH (09:51)
[2023-12-08] MEDS: DOCUSATE SODIUM 100 MG CAPSULE (FP) PO SCH (22:10)
[2023-12-08] MEDS: SUVOREXANT 10 MG TABLET PO PRN (22:10)
[2023-12-08] MEDS: THIAMINE HCL 100 MG TABLET (FP) PO SCH (22:10)
[2023-12-09] MEDS: GABAPENTIN 300 MG CAPSULE PO SCH ×3 (05:14→22:04)
[2023-12-09] MEDS: NICOTINE POLACRILEX 2 MG GUM BUC PRN ×6 (05:15→22:07)
[2023-12-09] MEDS: hydrOXYzine PAMOATE 25 MG CAPSULE (FP) PO PRN ×3 (05:17→22:04)
[2023-12-09] MEDS: METHOCARBAMOL 500 MG TABLET PO PRN ×3 (05:21→18:04)
[2023-12-09] MEDS: ONDANSETRON *ODT* 4 MG TABLET SL PRN (05:21)
[2023-12-09] MEDS ORDERED: methaDONE HCL 10 MG TABLET (FOR DETOX USE ONLY) PO ONE (10:00)
[2023-12-09] MEDS: PRENATAL VITAMINS W/ FOLIC ACID TABLET (FP) PO SCH (10:08)
[2023-12-09] MEDS: NICOTINE 21 MG/24 HOURS TOPICAL PATCH TD SCH (10:08)
[2023-12-09] MEDS: IBUPROFEN 600 MG TABLET (FP) PO PRN (14:10)
[2023-12-09] MEDS: THIAMINE HCL 100 MG TABLET (FP) PO SCH (22:05)
[2023-12-09] MEDS: SUVOREXANT 10 MG TABLET PO PRN (22:06)
[2023-12-09] MEDS: DOCUSATE SODIUM 100 MG CAPSULE (FP) PO SCH (22:15)
[2023-12-10] MEDS: hydrOXYzine PAMOATE 25 MG CAPSULE (FP) PO PRN (05:06)
[2023-12-10] MEDS: GABAPENTIN 300 MG CAPSULE PO SCH ×2 (05:06→13:17)
[2023-12-10] MEDS: METHOCARBAMOL 500 MG TABLET PO PRN ×2 (05:06→11:14)
[2023-12-10] MEDS: NICOTINE POLACRILEX 2 MG GUM BUC PRN ×3 (05:09→12:38)
[2023-12-10] MEDS: PRENATAL VITAMINS W/ FOLIC ACID TABLET (FP) PO SCH (10:04)
[2023-12-10] MEDS: NICOTINE 21 MG/24 HOURS TOPICAL PATCH TD SCH (10:05)
[2023-12-10] MEDS: ONDANSETRON *ODT* 4 MG TABLET SL PRN (11:17)
[2023-12-10 13:07] VITALS: PULSE 100; RESP 16; TEMP 97.8
[2023-12-10 13:10] VITALS: BP 123/79
== END 2023-12-10 14:13 | disposition other institution (70) | DRG 897 ==
LOC: YASAS 15:03 → Y3N 18:04
PROVIDERS: ADMIT Allergy & Immunology; ATTEND Surgery
PROC: HZ2ZZZZ Detoxification Services for Substance Abuse Treatment (ICD-10-PCS; principal; 2023-12-05)
DX: F11.23 Opioid dependence with withdrawal (principal); F19.282 Other psychoactive substance dependence with psychoactive substance-induced sleep disorder; F17.210 Nicotine dependence, cigarettes, uncomplicated; F41.9 Anxiety disorder, unspecified; Z87.09 Personal history of other diseases of the respiratory system; Z28.310 Unvaccinated for COVID-19; Z28.9 Immunization not carried out for unspecified reason
CPT/HCPCS: 36415; 80053; 80307; 85027; 86780; 87635; 93005; 93010; Q0162